=== PATIENT | female | born 1935 | race Caucasian/White ===

== ENCOUNTER → 2016-06-05 | Outpatient (REF) | payer MEDICARE, BC ==
[~2016-06-05] MED LIST: /FENT25PA; /ONDA4TA PO; /PRAV20TA PO; ALDA25TA2 PO; ALLO300T; AMLO5TAB2 PO; CIPR250T3 PO; DARV100T; ECOT325T5 PO; FOLI1TAB PO; FURO40TA2 PO; GABA300T; MAALSUS PO; NITR0.6S SL; PLAV75TA2 PO; POTA75TA PO; PREV30TA; THERGRAN PO; TRAM50TA2 PO; ULOR80TA2 PO; VALS80CA PO; VENL37.5 PO; VITAMIN D50000 UNT; XANA0.25 PO; ZANT150T PO; [UNRECOGNIZED DRUG - CODE] TOP; [UNRECOGNIZED DRUG - OTHER]
== END ==
LOC: M LAB REF 18:58
PROVIDERS: ATTEND Physician Assistant
DX: N39.0 Urinary tract infection, site not specified (principal)

== ENCOUNTER → 2016-07-04 | Outpatient (CLI) | payer MEDICARE, BC ==
--- NOTE | 2016-07-04 12:35 | REPMRS ---
Patient History The patient states she has not had a clinical breast exam in over a year. 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 Digital Mammo Screening Bilat: July 04, 2016 - Exam #: [id number] Bilateral CC and MLO view(s) were taken. Technologist: Elayne Mix, Technologist Prior study comparison: July 02, 2015, bilateral digital mammo screening bilat performed at [facility]. July 02, 2014, left breast digital mammo screening bilat performed at [facility]. June 20, 2013, left breast digital mammo screening bilat performed at [facility]. FINDINGS: There are scattered fibroglandular densities. There has been no change in the appearance of the left breast parenchyma in the interval since the prior examination. No mass, architectural distortion, or microcalcific cluster has developed. No suspicious finding. ASSESSMENT: BI-RADS/ACR category 2 mammogram. Benign finding(s). Recommendation Routine screening mammogram in 1 year. This mammogram was interpreted with the aid of an FDA-approved computer-aided dectection system. Electronically Signed By: John Paul Coppola MD 07/04/16 [id number]
== END ==
LOC: M RAD 10:40
PROVIDERS: ATTEND Family Medicine
DX: Z12.31 Encounter for screening mammogram for malignant neoplasm of breast (principal)

== ENCOUNTER → 2016-08-01 | Outpatient (REF) | payer MEDICARE, BC ==
[2016-08-01 13:16] LABS: ALBUMIN 3.8 GM/DL (3.2-5.2); ALBUMIN/GLOBULIN RATIO 1.23 (1.00-1.93); BILIRUBIN,TOTAL 0.4 MG/DL (0.2-1.0); CALCIUM LEVEL 8.6 MG/DL (8.8-10.2); CREATININE FOR GFR 1.58 MG/DL (0.55-1.02); GLOMERULAR FILTRATION RATE 33.3 (>32); POTASSIUM SERUM 3.7 MEQ/L (3.5-5.1); TOTAL PROTEIN 6.9 GM/DL (6.4-8.2)
[2016-08-01 13:57] LABS: BASO % 0.5 % (0.0-1.0); EOS # 0.2 K/mm3 (0.0-0.50); EOS % 2.3 % (0.0-3.0); LARGE UNSTAINED CELL # 0.1 K/mm3 (0.0-0.4); LYMPH # 1.2 K/mm3 (1.5-4.5); LYMPH % 16.5 % (24.0-44.0); MEAN CORPUSCULAR HEMOGLOBIN 32.4 pg (27.0-33.0); MEAN CORPUSCULAR VOLUME 98.2 fl (80.0-96.0); MONO # 0.4 K/mm3 (0.0-0.8); MONO % 6.2 % (0.0-5.0); NEUTROPHILS # 5.1 K/mm3 (1.8-7.7); NEUTROPHILS % 73.4 % (36.0-66.0); PLATELET COUNT, AUTOMATED 294 k/mm3 (150-450); RED CELL DISTRIBUTION WIDTH 13.1 % (11.5-14.5)
== END ==
LOC: M LAB REF 12:41
PROVIDERS: ATTEND Family Medicine
DX: R10.31 Right lower quadrant pain (principal)

== ENCOUNTER → 2016-10-06 | Outpatient (REF) | payer MEDICARE, BC | LOC: M LAB REF 12:51 | PROVIDERS: ATTEND Internal Medicine Nephrology | DX: N39.0 Urinary tract infection, site not specified (principal) ==

== ENCOUNTER → 2017-05-09 | Outpatient (REF) | payer MEDICARE, BC ==
[2017-05-09 13:53] LABS: ALBUMIN 3.8 GM/DL (3.2-5.2); ANION GAP 10 MEQ/L (8-16); BLOOD UREA NITROGEN 44 MG/DL (7-18); CALCIUM LEVEL 8.6 MG/DL (8.8-10.2); CARBON DIOXIDE LEVEL 25 MEQ/L (21-32); CHLORIDE LEVEL 106 MEQ/L (98-107); CREATININE FOR GFR 1.45 MG/DL (0.55-1.02); GLOMERULAR FILTRATION RATE 36.7 (>32); GLUCOSE, FASTING 105 MG/DL (83-110); MAGNESIUM LEVEL 2.2 MG/DL (1.8-2.4); POTASSIUM SERUM 4.1 MEQ/L (3.5-5.1); SODIUM LEVEL 141 MEQ/L (136-145)
== END ==
LOC: M LAB REF 13:15
DX: I50.32 Chronic diastolic (congestive) heart failure (principal)
CPT/HCPCS: 83735

== ENCOUNTER → 2017-06-19 | Outpatient (REF) | payer MEDICARE, BC ==
[2017-06-19 17:30] LABS: ALBUMIN 4.3 GM/DL (3.2-5.2); ANION GAP 10 MEQ/L (8-16); BLOOD UREA NITROGEN 29 MG/DL (7-18); CALCIUM LEVEL 8.9 MG/DL (8.8-10.2); CARBON DIOXIDE LEVEL 24 MEQ/L (21-32); CHLORIDE LEVEL 103 MEQ/L (98-107); CREATININE FOR GFR 1.52 MG/DL (0.55-1.30); GLOMERULAR FILTRATION RATE 34.8 (>32); GLUCOSE, FASTING 92 MG/DL (70-100); MAGNESIUM LEVEL 2.1 MG/DL (1.8-2.4); PHOSPHORUS LEVEL 3.5 MG/DL (2.5-4.9); POTASSIUM SERUM 4.1 MEQ/L (3.5-5.1); SODIUM LEVEL 137 MEQ/L (136-145)
== END ==
LOC: M LAB REF 16:26
DX: I50.32 Chronic diastolic (congestive) heart failure (principal)
CPT/HCPCS: 83735

== ENCOUNTER → 2017-07-05 | Outpatient (CLI) | payer MEDICARE, BC | LOC: M RAD 09:50 | DX: Z12.31 Encounter for screening mammogram for malignant neoplasm of breast (principal); Z85.3 Personal history of malignant neoplasm of breast | CPT/HCPCS: 77067 ==

== ENCOUNTER → 2017-10-06 | Outpatient (REF) | payer MEDICARE, BC ==
[2017-10-06 18:58] LABS: ANION GAP 9 MEQ/L (8-16); BLOOD UREA NITROGEN 31 MG/DL (7-18); C REACTIVE PROTEIN QUANTITATIV < 0.30 MG/DL (0.00-0.30); CALCIUM LEVEL 9.1 MG/DL (8.8-10.2); CARBON DIOXIDE LEVEL 26 MEQ/L (21-32); CHLORIDE LEVEL 106 MEQ/L (98-107); CREATININE FOR GFR 1.48 MG/DL (0.55-1.30); GLOMERULAR FILTRATION RATE 35.8 (>32); GLUCOSE, FASTING 90 MG/DL (70-100); POTASSIUM SERUM 4.3 MEQ/L (3.5-5.1); SODIUM LEVEL 141 MEQ/L (136-145)
[2017-10-06 19:34] LABS: HEMATOCRIT 43.6 % (36.0-47.0); HEMOGLOBIN 14.1 g/dl (12.0-15.5); MEAN CORPUSCULAR HEMOGLOBIN 32.1 pg (27.0-33.0); MEAN CORPUSCULAR HGB CONC 32.3 g/dl (32.0-36.5); MEAN CORPUSCULAR VOLUME 99.3 fl (80.0-96.0); PLATELET COUNT, AUTOMATED 323 10^3/uL (150-450); RED BLOOD COUNT 4.39 10^6/uL (4.00-5.40); WHITE BLOOD COUNT 8.6 10^3/uL (4.0-10.0)
[2017-10-06 22:27] LABS: ERYTHROCYTE SEDIMENTATION RATE 45 mm/hr (0-30)
== END ==
LOC: M LAB REF 14:00
DX: L97.329 Non-pressure chronic ulcer of left ankle with unspecified severity (principal)
CPT/HCPCS: 80048

== ENCOUNTER 2017-10-16 06:04 | Day surgery (SDC) | payer MEDICARE, BC ==
[2017-10-16] MEDS ORDERED: LR 1,000 ML IV ×6 (06:15→10:30)
[2017-10-16] MEDS ORDERED: PROPOFOL 200 MG/20 ML VIAL As Ordered ×4 (08:16→09:37)
[2017-10-16] MEDS ORDERED: CHLOROPROCAINE PRES. FREE 3% INJ 20 ML VIAL (J2400) As Ordered ×2 (08:16)
[2017-10-16] MEDS ORDERED: fentaNYL 250 MCG/5 ML INJECTION (J3010) As Ordered ×2 (08:16)
[2017-10-16] MEDS ORDERED: ONDANSETRON 4MG/2ML VIAL (J2405) As Ordered ×2 (08:16)
[2017-10-16] MEDS ORDERED: LIDOCAINE 2% INJ 100 MG/5 ML SDV (FOR ANES.) As Ordered ×2 (08:16)
[2017-10-16] MEDS ORDERED: MIDAZOLAM INJ 2 MG/2 ML VIAL (J2250) As Ordered ×2 (08:16)
[2017-10-16] MEDS ORDERED: ePHEDrine SULFATE 25 MG/5 ML(5MG/ML) SYRINGE As Ordered ×4 (08:19→09:09)
[2017-10-16] MEDS: CLINDAMYCIN INJ 900MG/6ML VIAL As Ordered ×2 (08:44)
[2017-10-16] MEDS: BUPIVACAINE HCL 0.5% 30 ML VIAL As Ordered ×2 (09:55)
[2017-10-16] MEDS ORDERED: NORCO, ANEXSIA 5/325MG TABLET (HYDROcodone/ACETAMINOPHEN) PO ×2 (10:30)
[2017-10-16] MEDS ORDERED: ONDANSETRON 4MG/2ML VIAL (J2405) IV ×2 (10:30)
[2017-10-16] MEDS ORDERED: fentaNYL 100 MCG/2 ML INJECTION (J3010) IV ×2 (10:30)
[2017-10-16] MEDS ORDERED: ACETAMINOPHEN 500 MG TAB As Ordered ×2 (10:32)
[2017-10-16] MEDS: ACETAMINOPHEN 500 MG TAB PO ×2 (10:50)
[2017-10-16] MEDS ORDERED: traMADol 50 MG TAB PO ×2 (13:00)
== END 2017-10-16 12:07 | disposition home or self-care (01) ==
LOC: M SDC 06:04
DX: T84.84XA Pain due to internal orthopedic prosthetic devices, implants and grafts, initial encounter (principal); I50.32 Chronic diastolic (congestive) heart failure; R94.31 Abnormal electrocardiogram [ECG] [EKG]; I25.10 Atherosclerotic heart disease of native coronary artery without angina pectoris; I11.9 Hypertensive heart disease without heart failure; Z79.899 Other long term (current) drug therapy; Z68.37 Body mass index [BMI] 37.0-37.9, adult; K59.00 Constipation, unspecified; Z79.82 Long term (current) use of aspirin; Y79.8 Miscellaneous orthopedic devices associated with adverse incidents, not elsewhere classified
CPT/HCPCS: 20680

== ENCOUNTER → 2017-12-19 | Outpatient (REF) | payer MEDICARE, BC ==
[2017-12-19 19:03] LABS: C REACTIVE PROTEIN QUANTITATIV 0.46 MG/DL (0.00-0.30)
[2017-12-19 19:19] LABS: BASO # 0.1 10^3/uL (0.0-0.2); BASO % 0.8 % (0.0-1.0); EOS # 0.2 10^3/uL (0.0-0.50); EOS % 2.5 % (0.0-3.0); HEMATOCRIT 42.2 % (36.0-47.0); HEMOGLOBIN 13.8 g/dl (12.0-15.5); IMMATURE GRANULOCYTE % 0.4 % (0-3.0); LYMPH # 2.2 10^3/uL (1.5-4.5); LYMPH % 26.1 % (24.0-44.0); MEAN CORPUSCULAR HEMOGLOBIN 32.6 pg (27.0-33.0); MEAN CORPUSCULAR HGB CONC 32.7 g/dl (32.0-36.5); MEAN CORPUSCULAR VOLUME 99.8 fl (80.0-96.0); MONO # 0.6 10^3/uL (0.0-0.8); MONO % 7.1 % (0.0-5.0); NEUTROPHILS # 5.3 10^3/uL (1.8-7.7); NEUTROPHILS % 63.1 % (36.0-66.0); PLATELET COUNT, AUTOMATED 331 10^3/uL (150-450); RED BLOOD COUNT 4.23 10^6/uL (4.00-5.40); RED CELL DISTRIBUTION WIDTH 12.8 % (11.5-14.5); WHITE BLOOD COUNT 8.4 10^3/uL (4.0-10.0)
[2017-12-19 21:12] LABS: ERYTHROCYTE SEDIMENTATION RATE 33 mm/hr (0-30)
== END ==
LOC: M LAB REF 17:03
DX: L97.329 Non-pressure chronic ulcer of left ankle with unspecified severity (principal)
CPT/HCPCS: 86140

== ENCOUNTER → 2017-12-24 | Outpatient (REF) | payer MEDICARE, BC ==
[2017-12-24 18:38] LABS: BASO # 0.1 10^3/uL (0.0-0.2); BASO % 0.5 % (0.0-1.0); EOS # 0.3 10^3/uL (0.0-0.50); EOS % 1.7 % (0.0-3.0); HEMATOCRIT 42.5 % (36.0-47.0); HEMOGLOBIN 14.3 g/dl (12.0-15.5); IMMATURE GRANULOCYTE % 0.5 % (0-3.0); LYMPH # 1.4 10^3/uL (1.5-4.5); LYMPH % 8.9 % (24.0-44.0); MEAN CORPUSCULAR HEMOGLOBIN 33.1 pg (27.0-33.0); MEAN CORPUSCULAR HGB CONC 33.6 g/dl (32.0-36.5); MEAN CORPUSCULAR VOLUME 98.4 fl (80.0-96.0); MONO % 6.7 % (0.0-5.0); NEUTROPHILS # 12.4 10^3/uL (1.8-7.7); NEUTROPHILS % 81.7 % (36.0-66.0); PLATELET COUNT, AUTOMATED 337 10^3/uL (150-450); RED BLOOD COUNT 4.32 10^6/uL (4.00-5.40); RED CELL DISTRIBUTION WIDTH 12.7 % (11.5-14.5); WHITE BLOOD COUNT 15.2 10^3/uL (4.0-10.0)
[2017-12-24 18:48] LABS: URIC ACID 4.2 MG/DL (2.6-6.0)
== END ==
LOC: M WUC 10:52
DX: M25.572 Pain in left ankle and joints of left foot (principal)
CPT/HCPCS: 84550

== ENCOUNTER 2017-12-25 14:46 | Inpatient (IN) | payer MEDICARE, BC ==
[2017-12-25] MEDS ORDERED: ALPRAZolam 0.5 MG TAB PO (15:15)
[2017-12-25] MEDS ORDERED: traMADol 50 MG TAB PO (15:30)
[2017-12-25] MEDS ORDERED: CEFTAROLINE FOSAMIL 400 MG in D5W MINI-BAG PLUS 50 ML IV (15:45)
[2017-12-25] MEDS: ACETAMINOPHEN 500 MG TAB PO ×2 (16:46→20:58)
[2017-12-25 17:01] LABS: ALBUMIN 3.5 GM/DL (3.2-5.2); ALBUMIN/GLOBULIN RATIO 1.09 (1.00-1.93); ALKALINE PHOSPHATASE 69 U/L (45-117); ALT/SGPT 15 U/L (12-78); ANION GAP 8 MEQ/L (8-16); AST/SGOT 9 U/L (7-37); BILIRUBIN,TOTAL 0.6 MG/DL (0.2-1.0); BLOOD UREA NITROGEN 27 MG/DL (7-18); CALCIUM LEVEL 8.9 MG/DL (8.8-10.2); CARBON DIOXIDE LEVEL 30 MEQ/L (21-32); CHLORIDE LEVEL 101 MEQ/L (98-107); CREATININE FOR GFR 1.49 MG/DL (0.55-1.30); GLOMERULAR FILTRATION RATE 35.5 (>32); GLUCOSE, FASTING 109 MG/DL (70-100); POTASSIUM SERUM 3.4 MEQ/L (3.5-5.1); SODIUM LEVEL 139 MEQ/L (136-145); TOTAL PROTEIN 6.7 GM/DL (6.4-8.2)
[2017-12-25] MEDS ORDERED: VANCOMYCIN HCL 1,000 MG, VIAL MATE ADAPTER 1 EACH in D5W 250 ML IV ×2 (18:00)
[2017-12-25] MEDS: VANCOMYCIN HCL 1,000 MG, VIAL MATE ADAPTER 1 EACH in D5W 250 ML IV ×2 (19:16→20:58)
[2017-12-25] MEDS: PRAVASTATIN 20 MG TAB PO (20:58)
[2017-12-26] MEDS: LR 1,000 ML IV ×2 (00:23→12:30)
[2017-12-26] MEDS: ACETAMINOPHEN 500 MG TAB PO ×3 (06:43→21:25)
[2017-12-26 07:13] LABS: ANION GAP 7 MEQ/L (8-16); BLOOD UREA NITROGEN 33 MG/DL (7-18); CALCIUM LEVEL 8.5 MG/DL (8.8-10.2); CARBON DIOXIDE LEVEL 28 MEQ/L (21-32); CHLORIDE LEVEL 106 MEQ/L (98-107); CREATININE FOR GFR 1.49 MG/DL (0.55-1.30); GLOMERULAR FILTRATION RATE 35.5 (>32); GLUCOSE, FASTING 124 MG/DL (70-100); POTASSIUM SERUM 3.6 MEQ/L (3.5-5.1); SODIUM LEVEL 141 MEQ/L (136-145)
[2017-12-26 07:16] LABS: BASO % 0.2 % (0.0-1.0); EOS # 0.2 10^3/uL (0.0-0.50); EOS % 1.4 % (0.0-3.0); HEMOGLOBIN 14.1 g/dl (12.0-15.5); IMMATURE GRANULOCYTE % 0.4 % (0-3.0); LYMPH # 1.2 10^3/uL (1.5-4.5); LYMPH % 11.4 % (24.0-44.0); MEAN CORPUSCULAR HEMOGLOBIN 33.2 pg (27.0-33.0); MEAN CORPUSCULAR HGB CONC 33.6 g/dl (32.0-36.5); MEAN CORPUSCULAR VOLUME 98.8 fl (80.0-96.0); MONO # 0.8 10^3/uL (0.0-0.8); MONO % 7.3 % (0.0-5.0); NEUTROPHILS # 8.2 10^3/uL (1.8-7.7); NEUTROPHILS % 79.3 % (36.0-66.0); PLATELET COUNT, AUTOMATED 212 10^3/uL (150-450); RED BLOOD COUNT 4.25 10^6/uL (4.00-5.40); RED CELL DISTRIBUTION WIDTH 12.8 % (11.5-14.5); WHITE BLOOD COUNT 10.4 10^3/uL (4.0-10.0)
[2017-12-26] MEDS ORDERED: amLODIPine 5 MG TAB PO (09:00)
[2017-12-26] MEDS: FEBUXOSTAT 40 MG TABLET (ULORIC) PO (10:30)
[2017-12-26] MEDS: VANCOMYCIN HCL 1,000 MG, VIAL MATE ADAPTER 1 EACH in D5W 250 ML IV (10:30)
[2017-12-26] MEDS: FOLIC ACID 1 MG TAB PO (10:30)
[2017-12-26] MEDS: SPIRONOLACTONE 25 MG TAB PO (10:31)
[2017-12-26] MEDS: PANTOPRAZOLE 40MG TAB (PROTONIX) PO (10:31)
[2017-12-26] MEDS: VENLAFAXINE **XR** 37.5 MG CAPSULE PO (10:31)
[2017-12-26] MEDS: CLOPIDOGREL 75 MG TAB PO (10:31)
[2017-12-26] MEDS: FUROSEMIDE 40 MG TAB PO (10:31)
[2017-12-26] MEDS: amLODIPine 10 MG TAB PO (10:32)
[2017-12-26] MEDS ORDERED: ONDANSETRON 4MG/2ML VIAL (J2405) IV (16:30)
[2017-12-26] MEDS ORDERED: BISACODYL 10 MG SUPP PR (16:30)
[2017-12-26] MEDS: ASPIRIN 81 MG ENTERIC TAB PO (21:24)
[2017-12-26] MEDS: ALPRAZolam 0.5 MG TAB PO (21:24)
[2017-12-26] MEDS: PRAVASTATIN 20 MG TAB PO (21:24)
[2017-12-26] MEDS: SENOKOT S TAB PO (21:24)
[2017-12-27] MEDS: LR 1,000 ML IV (01:00)
[2017-12-27] MEDS: ACETAMINOPHEN 500 MG TAB PO ×3 (06:32→21:52)
[2017-12-27 06:50] LABS: BASO % 0.1 % (0.0-1.0); EOS # 0.4 10^3/uL (0.0-0.50); EOS % 5.3 % (0.0-3.0); HEMATOCRIT 36.2 % (36.0-47.0); IMMATURE GRANULOCYTE % 0.4 % (0-3.0); MEAN CORPUSCULAR HEMOGLOBIN 32.7 pg (27.0-33.0); MEAN CORPUSCULAR HGB CONC 32.9 g/dl (32.0-36.5); MEAN CORPUSCULAR VOLUME 99.5 fl (80.0-96.0); MONO # 0.6 10^3/uL (0.0-0.8); MONO % 7.6 % (0.0-5.0); NEUTROPHILS # 5.7 10^3/uL (1.8-7.7); NEUTROPHILS % 73.6 % (36.0-66.0); PLATELET COUNT, AUTOMATED 234 10^3/uL (150-450); RED BLOOD COUNT 3.64 10^6/uL (4.00-5.40); RED CELL DISTRIBUTION WIDTH 12.7 % (11.5-14.5); WHITE BLOOD COUNT 7.7 10^3/uL (4.0-10.0)
[2017-12-27 06:53] LABS: HEMOGLOBIN 11.9 g/dl (12.0-15.5)
[2017-12-27 07:11] LABS: ANION GAP 8 MEQ/L (8-16); BLOOD UREA NITROGEN 32 MG/DL (7-18); CALCIUM LEVEL 8.5 MG/DL (8.8-10.2); CARBON DIOXIDE LEVEL 27 MEQ/L (21-32); CHLORIDE LEVEL 108 MEQ/L (98-107); CREATININE FOR GFR 1.39 MG/DL (0.55-1.30); GLOMERULAR FILTRATION RATE 38.5 (>32); GLUCOSE, FASTING 117 MG/DL (70-100); POTASSIUM SERUM 3.4 MEQ/L (3.5-5.1); SODIUM LEVEL 143 MEQ/L (136-145)
[2017-12-27 07:25] LABS: ERYTHROCYTE SEDIMENTATION RATE 62 mm/hr (0-30)
[2017-12-27] MEDS: VENLAFAXINE **XR** 37.5 MG CAPSULE PO (08:57)
[2017-12-27] MEDS: SPIRONOLACTONE 25 MG TAB PO (08:57)
[2017-12-27] MEDS: amLODIPine 10 MG TAB PO (08:58)
[2017-12-27] MEDS: FUROSEMIDE 40 MG TAB PO (08:58)
[2017-12-27] MEDS: MIRALAX *UNIT DOSE* 17GM PACKET PO (08:58)
[2017-12-27] MEDS: FEBUXOSTAT 40 MG TABLET (ULORIC) PO (09:00)
[2017-12-27] MEDS: SENOKOT S TAB PO ×2 (09:00→21:53)
[2017-12-27] MEDS: CLOPIDOGREL 75 MG TAB PO (09:00)
[2017-12-27] MEDS: PANTOPRAZOLE 40MG TAB (PROTONIX) PO (09:00)
[2017-12-27] MEDS: FOLIC ACID 1 MG TAB PO (09:13)
[2017-12-27] MEDS: ALPRAZolam 0.5 MG TAB PO (09:13)
[2017-12-27] MEDS: VANCOMYCIN HCL 1,000 MG, VIAL MATE ADAPTER 1 EACH in D5W 250 ML IV (09:16)
[2017-12-27] MEDS: POTASSIUM CHLORIDE 10 MEQ SR TABLET PO (13:39)
[2017-12-27] MEDS: PRAVASTATIN 20 MG TAB PO (21:52)
[2017-12-27] MEDS: ASPIRIN 81 MG ENTERIC TAB PO (21:52)
[2017-12-28] MEDS: ACETAMINOPHEN 500 MG TAB PO (05:17)
[2017-12-28 07:28] LABS: BASO % 0.3 % (0.0-1.0); EOS # 0.6 10^3/uL (0.0-0.50); EOS % 8.2 % (0.0-3.0); HEMOGLOBIN 11.8 g/dl (12.0-15.5); IMMATURE GRANULOCYTE % 0.6 % (0-3.0); LYMPH # 1.2 10^3/uL (1.5-4.5); LYMPH % 17.6 % (24.0-44.0); MEAN CORPUSCULAR HEMOGLOBIN 32.6 pg (27.0-33.0); MEAN CORPUSCULAR HGB CONC 32.8 g/dl (32.0-36.5); MEAN CORPUSCULAR VOLUME 99.4 fl (80.0-96.0); MONO # 0.6 10^3/uL (0.0-0.8); MONO % 9.2 % (0.0-5.0); NEUTROPHILS # 4.4 10^3/uL (1.8-7.7); NEUTROPHILS % 64.1 % (36.0-66.0); PLATELET COUNT, AUTOMATED 260 10^3/uL (150-450); RED BLOOD COUNT 3.62 10^6/uL (4.00-5.40); RED CELL DISTRIBUTION WIDTH 12.7 % (11.5-14.5); WHITE BLOOD COUNT 6.9 10^3/uL (4.0-10.0)
[2017-12-28 07:45] LABS: ANION GAP 8 MEQ/L (8-16); BLOOD UREA NITROGEN 29 MG/DL (7-18); CALCIUM LEVEL 8.6 MG/DL (8.8-10.2); CARBON DIOXIDE LEVEL 27 MEQ/L (21-32); CHLORIDE LEVEL 108 MEQ/L (98-107); CREATININE FOR GFR 1.26 MG/DL (0.55-1.30); GLOMERULAR FILTRATION RATE 43.1 (>32); GLUCOSE, FASTING 106 MG/DL (70-100); POTASSIUM SERUM 3.9 MEQ/L (3.5-5.1); SODIUM LEVEL 143 MEQ/L (136-145); VANCOMYCIN LEVEL TROUGH 16.3 UG/ML (10.0-20.0)
[2017-12-28] MEDS: VANCOMYCIN HCL 1,000 MG, VIAL MATE ADAPTER 1 EACH in D5W 250 ML IV (08:18)
[2017-12-28] MEDS: MIRALAX *UNIT DOSE* 17GM PACKET PO (08:18)
[2017-12-28] MEDS: PANTOPRAZOLE 40MG TAB (PROTONIX) PO (08:26)
[2017-12-28] MEDS: SENOKOT S TAB PO (08:26)
[2017-12-28] MEDS: CLOPIDOGREL 75 MG TAB PO (08:27)
[2017-12-28] MEDS: POTASSIUM CHLORIDE 10 MEQ SR TABLET PO (08:27)
[2017-12-28] MEDS: amLODIPine 10 MG TAB PO (08:28)
[2017-12-28] MEDS: FEBUXOSTAT 40 MG TABLET (ULORIC) PO (08:28)
[2017-12-28] MEDS: VENLAFAXINE **XR** 37.5 MG CAPSULE PO (08:29)
[2017-12-28] MEDS: FOLIC ACID 1 MG TAB PO (08:29)
[2017-12-28] MEDS: FUROSEMIDE 40 MG TAB PO (08:29)
[2017-12-28] MEDS: SPIRONOLACTONE 25 MG TAB PO (08:30)
[2017-12-28 08:58] LABS: ERYTHROCYTE SEDIMENTATION RATE 56 mm/hr (0-30)
== END 2017-12-28 12:20 | disposition home or self-care (01) | DRG 560 ==
LOC: M MS5PR 14:46
DX: T84.7XXA Infection and inflammatory reaction due to other internal orthopedic prosthetic devices, implants and grafts, initial encounter (principal); L03.115 Cellulitis of right lower limb; I12.9 Hypertensive chronic kidney disease with stage 1 through stage 4 chronic kidney disease, or unspecified chronic kidney disease; N18.3 Chronic kidney disease, stage 3 (moderate); K21.9 Gastro-esophageal reflux disease without esophagitis; G47.30 Sleep apnea, unspecified; I25.10 Atherosclerotic heart disease of native coronary artery without angina pectoris; H26.9 Unspecified cataract; M10.9 Gout, unspecified; I65.23 Occlusion and stenosis of bilateral carotid arteries; B95.62 Methicillin resistant Staphylococcus aureus infection as the cause of diseases classified elsewhere; Z88.0 Allergy status to penicillin; Z88.2 Allergy status to sulfonamides; Z88.5 Allergy status to narcotic agent; Z88.8 Allergy status to other drugs, medicaments and biological substances; Z79.02 Long term (current) use of antithrombotics/antiplatelets; Z79.82 Long term (current) use of aspirin; Z79.899 Other long term (current) drug therapy; Z95.5 Presence of coronary angioplasty implant and graft; Y83.1 Surgical operation with implant of artificial internal device as the cause of abnormal reaction of the patient, or of later complication, without mention of misadventure at the time of the procedure; Z85.3 Personal history of malignant neoplasm of breast

== ENCOUNTER → 2017-12-25 | Outpatient (CLI) | payer MEDICARE, BC | LOC: M RAD 13:13 | DX: R60.0 Localized edema (principal); Z47.89 Encounter for other orthopedic aftercare; Z85.3 Personal history of malignant neoplasm of breast ==

== ENCOUNTER → 2018-01-09 | Outpatient (REF) | payer MEDICARE, BC ==
[2018-01-09 13:43] LABS: BASO # 0.1 10^3/uL (0.0-0.2); BASO % 1.5 % (0.0-1.0); EOS # 0.2 10^3/uL (0.0-0.50); EOS % 1.9 % (0.0-3.0); HEMATOCRIT 38.6 % (36.0-47.0); HEMOGLOBIN 12.7 g/dl (12.0-15.5); IMMATURE GRANULOCYTE % 0.2 % (0-3.0); LYMPH # 1.9 10^3/uL (1.5-4.5); MEAN CORPUSCULAR HGB CONC 32.9 g/dl (32.0-36.5); MEAN CORPUSCULAR VOLUME 100.3 fl (80.0-96.0); MONO # 0.6 10^3/uL (0.0-0.8); NEUTROPHILS % 68.4 % (36.0-66.0); PLATELET COUNT, AUTOMATED 266 10^3/uL (150-450); RED BLOOD COUNT 3.85 10^6/uL (4.00-5.40); RED CELL DISTRIBUTION WIDTH 12.6 % (11.5-14.5); WHITE BLOOD COUNT 8.8 10^3/uL (4.0-10.0)
[2018-01-09 14:50] LABS: ERYTHROCYTE SEDIMENTATION RATE 52 mm/hr (0-30)
[2018-01-09 14:56] LABS: ANION GAP 10 MEQ/L (8-16); BLOOD UREA NITROGEN 66 MG/DL (7-18); C REACTIVE PROTEIN QUANTITATIV 0.47 MG/DL (0.00-0.30); CARBON DIOXIDE LEVEL 28 MEQ/L (21-32); CHLORIDE LEVEL 100 MEQ/L (98-107); CREATININE FOR GFR 1.95 MG/DL (0.55-1.30); GLUCOSE, FASTING 96 MG/DL (70-100); POTASSIUM SERUM 4.3 MEQ/L (3.5-5.1); SODIUM LEVEL 138 MEQ/L (136-145)
== END ==
LOC: M SFHCPLAZ 10:29
DX: A49.02 Methicillin resistant Staphylococcus aureus infection, unspecified site (principal)
CPT/HCPCS: 80048

== ENCOUNTER → 2018-01-19 | Outpatient (REF) | payer MEDICARE, BC ==
[2018-01-19 18:42] LABS: ALBUMIN 3.9 GM/DL (3.2-5.2); ALBUMIN/GLOBULIN RATIO 1.18 (1.00-1.93); ALKALINE PHOSPHATASE 73 U/L (45-117); ALT/SGPT 21 U/L (12-78); ANION GAP 11 MEQ/L (8-16); AST/SGOT 14 U/L (7-37); BILIRUBIN,TOTAL 0.6 MG/DL (0.2-1.0); BLOOD UREA NITROGEN 43 MG/DL (7-18); C REACTIVE PROTEIN QUANTITATIV 0.31 MG/DL (0.00-0.30); CARBON DIOXIDE LEVEL 26 MEQ/L (21-32); CHLORIDE LEVEL 101 MEQ/L (98-107); GLOMERULAR FILTRATION RATE 26.8 (>32); GLUCOSE, FASTING 99 MG/DL (70-100); POTASSIUM SERUM 4.5 MEQ/L (3.5-5.1); SODIUM LEVEL 138 MEQ/L (136-145); TOTAL PROTEIN 7.2 GM/DL (6.4-8.2)
[2018-01-19 18:53] LABS: BASO # 0.1 10^3/uL (0.0-0.2); BASO % 1.9 % (0.0-1.0); EOS # 0.2 10^3/uL (0.0-0.50); EOS % 3.1 % (0.0-3.0); HEMATOCRIT 35.4 % (36.0-47.0); HEMOGLOBIN 11.6 g/dl (12.0-15.5); IMMATURE GRANULOCYTE % 0.3 % (0-3.0); LYMPH # 1.7 10^3/uL (1.5-4.5); LYMPH % 25.4 % (24.0-44.0); MEAN CORPUSCULAR HEMOGLOBIN 32.3 pg (27.0-33.0); MEAN CORPUSCULAR HGB CONC 32.8 g/dl (32.0-36.5); MEAN CORPUSCULAR VOLUME 98.6 fl (80.0-96.0); MONO # 0.5 10^3/uL (0.0-0.8); MONO % 6.6 % (0.0-5.0); NEUTROPHILS # 4.3 10^3/uL (1.8-7.7); NEUTROPHILS % 62.7 % (36.0-66.0); PLATELET COUNT, AUTOMATED 245 10^3/uL (150-450); RED BLOOD COUNT 3.59 10^6/uL (4.00-5.40); RED CELL DISTRIBUTION WIDTH 12.5 % (11.5-14.5); WHITE BLOOD COUNT 6.8 10^3/uL (4.0-10.0)
[2018-01-19 20:04] LABS: ERYTHROCYTE SEDIMENTATION RATE 48 mm/hr (0-30)
== END ==
LOC: M SFHCPLAZ 16:16
DX: G43.A0 Cyclical vomiting, in migraine, not intractable (principal); A49.02 Methicillin resistant Staphylococcus aureus infection, unspecified site; L03.116 Cellulitis of left lower limb
CPT/HCPCS: 80053

== ENCOUNTER → 2018-02-02 | Outpatient (REF) | payer MEDICARE, BC ==
[2018-02-02 18:35] LABS: BASO # 0.1 10^3/uL (0.0-0.2); BASO % 0.8 % (0.0-1.0); EOS # 0.3 10^3/uL (0.0-0.50); HEMATOCRIT 38.5 % (36.0-47.0); HEMOGLOBIN 12.2 g/dl (12.0-15.5); IMMATURE GRANULOCYTE % 0.4 % (0-3.0); LYMPH # 1.8 10^3/uL (1.5-4.5); LYMPH % 19.9 % (24.0-44.0); MEAN CORPUSCULAR HEMOGLOBIN 32.2 pg (27.0-33.0); MEAN CORPUSCULAR HGB CONC 31.7 g/dl (32.0-36.5); MEAN CORPUSCULAR VOLUME 101.6 fl (80.0-96.0); MONO # 0.7 10^3/uL (0.0-0.8); MONO % 7.1 % (0.0-5.0); NEUTROPHILS # 6.3 10^3/uL (1.8-7.7); NEUTROPHILS % 68.8 % (36.0-66.0); PLATELET COUNT, AUTOMATED 470 10^3/uL (150-450); RED BLOOD COUNT 3.79 10^6/uL (4.00-5.40); RED CELL DISTRIBUTION WIDTH 14.6 % (11.5-14.5); WHITE BLOOD COUNT 9.2 10^3/uL (4.0-10.0)
[2018-02-02 19:00] LABS: ANION GAP 13 MEQ/L (8-16); BLOOD UREA NITROGEN 33 MG/DL (7-18); CALCIUM LEVEL 9.3 MG/DL (8.8-10.2); CARBON DIOXIDE LEVEL 25 MEQ/L (21-32); CHLORIDE LEVEL 102 MEQ/L (98-107); CREATININE FOR GFR 1.55 MG/DL (0.55-1.30); GLOMERULAR FILTRATION RATE 33.9 (>32); GLUCOSE, FASTING 94 MG/DL (70-100); POTASSIUM SERUM 4.4 MEQ/L (3.5-5.1); SODIUM LEVEL 140 MEQ/L (136-145)
[2018-02-02 20:34] LABS: ERYTHROCYTE SEDIMENTATION RATE 45 mm/hr (0-30)
== END ==
LOC: M SFHCPLAZ 17:11
DX: A49.02 Methicillin resistant Staphylococcus aureus infection, unspecified site (principal); N18.3 Chronic kidney disease, stage 3 (moderate)
CPT/HCPCS: 80048

== ENCOUNTER → 2018-05-31 | Outpatient (CLI) | payer MEDICARE, BC ==
[~2018-05-31] MED LIST changes: +ASPI81TA85 PO; +CLIN150C14 PO; +FOLI400T PO; +LANS30CA PO; +LINE600T11 PO; +NITR0.4S14 SL; +PARI1CAP3 PO; +POTA10TA16 PO; +SENN18TA PO; +TRAM-533 PO; -VITAMIN D50000 UNT; +VITAMIN D50000 UNT PO
--- NOTE | 2018-05-31 12:04 | REP ---
CT Head without contrast HISTORY: Contusion COMPARISON: 08/04/2007 An area of decreased attenuation is present in the right basal ganglia. This represents an old lacunar infarction. Areas of decreased attenuation are present in the periventricular white matter. This represents small-vessel ischemic disease. There is no intraparenchymal hemorrhage, acute infarct, mass or midline shift. The ventricular system and cortical sulci are dilated consistent with minimal volume loss. There is no extra cerebral collection. There is no fracture. The visualized sinuses are clear. IMPRESSION: 1. Old right basal ganglia lacunar infarction. 2. Small vessel ischemic disease. 3. Minimal volume loss. Electronically Signed by Dung Higuera MD 05/31/2018 11:57 A
== END ==
LOC: M RAD 11:26
PROVIDERS: ATTEND Physician Assistant
DX: I73.9 Peripheral vascular disease, unspecified (principal); I25.2 Old myocardial infarction; S00.83XA Contusion of other part of head, initial encounter; X58.XXXA Exposure to other specified factors, initial encounter; Y92.89 Other specified places as the place of occurrence of the external cause

== ENCOUNTER → 2018-08-16 | Outpatient (CLI) | payer MEDICARE, BC ==
[~2018-08-16] MED LIST changes: -/FENT25PA; -/ONDA4TA PO; -/PRAV20TA PO; +FENT1DIS14; +ONDA-1 PO; +PRAV1TAB39 PO
[2018-08-16 09:37] LABS: BASO # 0.1 10^3/uL (0.0-0.2); BASO % 0.8 % (0.0-1.0); EOS # 0.1 10^3/uL (0.0-0.50); EOS % 1.7 % (0.0-3.0); HEMATOCRIT 41.7 % (36.0-47.0); HEMOGLOBIN 13.7 g/dl (12.0-15.5); LYMPH # 1.5 10^3/uL (1.5-4.5); LYMPH % 19.6 % (24.0-44.0); MEAN CORPUSCULAR HEMOGLOBIN 32.6 pg (27.0-33.0); MEAN CORPUSCULAR HGB CONC 32.9 g/dl (32.0-36.5); MEAN CORPUSCULAR VOLUME 99.3 fl (80.0-96.0); MONO # 0.5 10^3/uL (0.0-0.8); MONO % 7.1 % (0.0-5.0); NEUTROPHILS # 5.4 10^3/uL (1.8-7.7); NEUTROPHILS % 70.4 % (36.0-66.0); PLATELET COUNT, AUTOMATED 277 10^3/uL (150-450); WHITE BLOOD COUNT 7.6 10^3/uL (4.0-10.0)
[2018-08-16 10:18] LABS: ALBUMIN 3.9 GM/DL (3.2-5.2); ALT/SGPT 14 U/L (12-78); BILIRUBIN,TOTAL 0.5 MG/DL (0.2-1.0); BLOOD UREA NITROGEN 27 MG/DL (7-18); CALCIUM LEVEL 9.5 MG/DL (8.8-10.2); CARBON DIOXIDE LEVEL 27 MEQ/L (21-32); CHLORIDE LEVEL 105 MEQ/L (98-107); CK-MB VALUE MASS < 1.0 NG/ML (<3.6); CPK CREATINE PHOSPHOKINASE 34 U/L (26-192); CREATININE FOR GFR 1.68 MG/DL (0.55-1.30); GLOMERULAR FILTRATION RATE 30.9 (>32); GLUCOSE, FASTING 112 MG/DL (70-100); MB/CK RELATIVE INDEX 2.94 (< OR =4); POTASSIUM SERUM 4.1 MEQ/L (3.5-5.1); SODIUM LEVEL 139 MEQ/L (136-145); TROPONIN I < 0.02 NG/ML (< 0.10)
== END ==
LOC: M WUC 08:45
PROVIDERS: ATTEND Physician Assistant
DX: R07.9 Chest pain, unspecified (principal); R11.0 Nausea

== ENCOUNTER → 2018-08-17 | Outpatient (CLI) | payer MEDICARE, BC ==
--- NOTE | 2018-08-17 14:10 | REP ---
Bilateral lower extremity deep vein duplex ultrasound: The deep veins demonstrate normal compression, normal Doppler color flow and normal Doppler waveforms with respiration and augmentation from the popliteal veins to the common femoral veins in the right and the left lower extremities. Impression: There is no deep vein thrombus in the right on the left lower extremities . Electronically Signed by Noe Gallo MD 08/17/2018 02:02 P
== END ==
LOC: M RAD 13:16
PROVIDERS: ATTEND Physician Assistant
DX: R07.9 Chest pain, unspecified (principal)

== ENCOUNTER → 2018-08-29 | Outpatient (REF) | payer MEDICARE, BC ==
[2018-08-29 18:10] LABS: ALBUMIN 4.1 GM/DL (3.2-5.2); BILIRUBIN,TOTAL 0.4 MG/DL (0.2-1.0); CALCIUM LEVEL 8.9 MG/DL (8.8-10.2); CREATININE FOR GFR 1.85 MG/DL (0.55-1.30); FREE T3 2.4 PG/ML (2.2-4.0); GLOMERULAR FILTRATION RATE 27.6 (>32); POTASSIUM SERUM 5.2 MEQ/L (3.5-5.1); THYROID STIMULATING HORMONE 5.04 uIU/ML (0.358-3.740); TOTAL PROTEIN 7.3 GM/DL (6.4-8.2)
== END ==
LOC: M LAB REF 17:14
PROVIDERS: ATTEND Family Medicine
DX: E07.9 Disorder of thyroid, unspecified (principal); R10.30 Lower abdominal pain, unspecified

== ENCOUNTER → 2019-03-19 | Outpatient (REF) | payer MEDICARE, BC ==
[~2019-03-19] MED LIST changes: +LINE1TAB6 PO; -LINE600T11 PO
== END ==
LOC: M LAB REF 13:35
PROVIDERS: ATTEND Internal Medicine Nephrology
DX: N39.0 Urinary tract infection, site not specified (principal)

== ENCOUNTER → 2019-05-30 | Outpatient (REF) | payer MEDICARE, BC ==
[2019-05-30 17:14] LABS: FREE T4 0.98 NG/DL (0.76-1.46); THYROID STIMULATING HORMONE 2.6 uIU/ML (0.358-3.740)
== END ==
LOC: M LABWUC 16:03
PROVIDERS: ATTEND Family Medicine
DX: E07.9 Disorder of thyroid, unspecified (principal)

== ENCOUNTER → 2020-02-06 | Outpatient (CLI) | payer MEDICARE, BC ==
[~2020-02-06] MED LIST changes: -ASPI81TA85 PO; +ASPI81TA86 PO
--- NOTE | 2020-02-12 11:21 | REP ---
LEFT KNEE SERIES HISTORY: Worsening knee pain and swelling. TECHNIQUE: Five views of the left knee are performed. FINDINGS: There is no acute fracture or dislocation. There is severe narrowing of the lateral joint space with a moderate degree of subchondral sclerosis and moderate spurring of the lateral femoral condyle and tibial plateau. There is diffuse irregularity of the articulating surfaces of the lateral femoral condyle and tibial plateau. There is mild narrowing of the medial joint space with mild subchondral sclerosis and spurring. Patellofemoral joint is [id number] narrowed diffusely with mild subchondral sclerosis. There is moderate spurring of the superior and inferior poles of the patella, as well as of the anterior aspect of the femoral condyles. There is a moderate joint effusion. Vascular calcifications are seen posteriorly. 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 No acute fracture. Moderate joint effusion. DD: NETO
== END ==
LOC: M WUC 12:15
PROVIDERS: ATTEND Family Medicine
DX: M17.12 Unilateral primary osteoarthritis, left knee (principal); M25.462 Effusion, left knee

== ENCOUNTER → 2020-03-15 | Outpatient (REF) | payer MEDICARE, BC ==
[2020-03-15 17:31] LABS: BASO # 0.1 10^3/uL (0.0-0.2); EOS # 0.2 10^3/uL (0.0-0.5); EOS % 2.7 % (0.0-3.0); HEMATOCRIT 43.5 % (36.0-47.0); HEMOGLOBIN 13.4 g/dl (12.0-15.5); LYMPH # 1.4 10^3/uL (1.5-5.0); LYMPH % 22.2 % (24.0-44.0); MEAN CORPUSCULAR HEMOGLOBIN 31.5 pg (27.0-33.0); MEAN CORPUSCULAR HGB CONC 30.8 g/dl (32.0-36.5); MEAN CORPUSCULAR VOLUME 102.4 fl (80.0-96.0); MONO # 0.5 10^3/uL (0.0-0.8); MONO % 7.5 % (0.0-5.0); NEUTROPHILS # 4.2 10^3/uL (1.5-8.5); NEUTROPHILS % 66.3 % (36.0-66.0); PLATELET COUNT, AUTOMATED 280 10^3/uL (150-450); RED BLOOD COUNT 4.25 10^6/uL (4.00-5.40); WHITE BLOOD COUNT 6.3 10^3/uL (4.0-10.0)
[2020-03-15 17:53] LABS: ERYTHROCYTE SEDIMENTATION RATE 30 mm/hr (0-30)
== END ==
LOC: M LAB REF 17:20
PROVIDERS: ATTEND Orthopaedic Surgery
DX: M25.572 Pain in left ankle and joints of left foot (principal)

== ENCOUNTER → 2020-06-12 | Outpatient (CLI) | payer MEDICARE, BC ==
[~2020-06-12] MED LIST changes: -CLIN150C14 PO; +CLIN150C15 PO
--- NOTE | 2020-06-12 16:56 | REP ---
INDICATION: PAIN COMPARISON: None. TECHNIQUE: Four views right ankle. FINDINGS: There is no evidence of acute fracture, dislocation, or intrinsic bone disease.Small inferior calcaneal spur is noted. Mild scattered vascular calcifications are seen in the soft tissues. There is mild dorsal navicular spurring as well as mild narrowing of the talonavicular joint. The ankle mortise is anatomic. IMPRESSION: No fracture or dislocation. Mild arthritic changes. <Electronically signed by Noe Rangel > 06/12/20 [id number]
== END ==
LOC: M WUC 14:23
PROVIDERS: ATTEND Family Medicine
DX: M79.661 Pain in right lower leg (principal); M19.071 Primary osteoarthritis, right ankle and foot

== ENCOUNTER → 2020-09-11 | Outpatient (CLI) | payer MEDICARE, BC ==
[~2020-09-11] MED LIST changes: -FOLI400T PO; +FOLI400T13 PO
--- NOTE | 2020-09-11 13:56 | REP ---
INDICATION: PAIN COMPARISON: None. TECHNIQUE: Five views right knee. FINDINGS: There is no evidence of acute fracture, dislocation, or intrinsic bone disease.There is moderate medial joint space narrowing with subchondral sclerosis and diffuse moderate spurring. There is mild narrowing of the lateral joint. There is moderate patellofemoral compartment narrowing with subchondral sclerosis. There is mild spurring of the lateral patellar facet. Mild vascular calcifications are seen posteriorly. IMPRESSION: No fracture or dislocation. Moderate degenerative changes. <Electronically signed by Noe Rangel > 09/11/20 [id number]
== END ==
LOC: M WUC 13:18
PROVIDERS: ATTEND Nurse Practitioner Family
DX: M25.561 Pain in right knee (principal); M17.11 Unilateral primary osteoarthritis, right knee

== ENCOUNTER → 2020-09-29 | Outpatient (REF) | payer MEDICARE, BC ==
[2020-09-29 14:33] LABS: APPEARANCE, URINE HAZY (CLEAR); BACTERIA, URINE AUTO 1+ (NEGATIVE); BILIRUBIN, URINE AUTO NEGATIVE (NEGATIVE); BLOOD, URINE BLOOD NEGATIVE (NEGATIVE); COLOR, URINE YELLOW (YELLOW); GLUCOSE, URINE (UA) AUTO NEGATIVE (NEGATIVE); KETONE, URINE AUTO NEGATIVE (NEGATIVE); LEUKOCYTE ESTERASE, URINE AUTO 1+ (NEGATIVE); NITRITE, URINE AUTO NEGATIVE (NEGATIVE); PROTEIN, URINE AUTO 1+ mg/dL (NEGATIVE); RBC, URINE AUTO 1 /HPF (0-3); SPECIFIC GRAVITY URINE AUTO 1.015 (1.002-1.035); SQUAMOUS EPITHELIAL CELL UR AU 2 /HPF (0-6); UROBILINOGEN, URINE AUTO 0.2 mg/dL (0.0-2.0); WBC, URINE AUTO 9 /HPF (0-3)
== END ==
LOC: M LAB REF 14:05
PROVIDERS: ATTEND Nurse Practitioner Family
DX: N18.4 Chronic kidney disease, stage 4 (severe) (principal)

== ENCOUNTER → 2021-03-09 | Outpatient (CLI) | payer MEDICARE, BC ==
[~2021-03-09] MED LIST changes: -CLIN150C15 PO; +CLIN150C17 PO
[2021-03-09 20:06] LABS: BASO # 0.1 10^3/uL (0.0-0.2); BASO % 0.7 % (0.0-1.0); EOS # 0.1 10^3/uL (0.0-0.5); HEMATOCRIT 46.3 % (36.0-47.0); HEMOGLOBIN 14.7 g/dl (12.0-15.5); LYMPH # 1.9 10^3/uL (1.5-5.0); LYMPH % 19.5 % (24.0-44.0); MEAN CORPUSCULAR HEMOGLOBIN 32.6 pg (27.0-33.0); MEAN CORPUSCULAR HGB CONC 31.7 g/dl (32.0-36.5); MEAN CORPUSCULAR VOLUME 102.7 fl (80.0-96.0); MONO # 0.8 10^3/uL (0.0-0.8); MONO % 7.7 % (2.0-8.0); NEUTROPHILS % 70.8 % (36.0-66.0); PLATELET COUNT, AUTOMATED 340 10^3/uL (150-450); RED BLOOD COUNT 4.51 10^6/uL (4.00-5.40); WHITE BLOOD COUNT 9.8 10^3/uL (4.0-10.0)
[2021-03-09 20:36] LABS: ALBUMIN 4.2 GM/DL (3.2-5.2); BILIRUBIN,TOTAL 0.5 MG/DL (0.2-1.0); CREATININE FOR GFR 1.79 MG/DL (0.55-1.30); GLOMERULAR FILTRATION RATE 28.5 (>32); POTASSIUM SERUM 3.8 MEQ/L (3.5-5.1); TOTAL PROTEIN 7.8 GM/DL (6.4-8.2)
== END ==
LOC: M WUC 15:16
PROVIDERS: ATTEND Family Medicine
DX: R10.11 Right upper quadrant pain (principal)

== ENCOUNTER → 2021-04-08 | Outpatient (CLI) | payer MEDICARE, BC ==
--- NOTE | 2021-04-08 10:30 | REP ---
INDICATION: PAIN IN LEFT ANKLE AND JOINTS OF LEFT FOOT. COMPARISON: 11/24/2015 TECHNIQUE: Four views FINDINGS: Since the last examination there has been removal of the distal fibular internal fixation plate and fixing screws. Additionally, only 1 cancellous screw remains affixing an old healed medial malleolar fracture. There is evidence of widening of the lateral mortise. This is stable from the prior exam. I see no definite acute fracture. There are some vague lucencies in the distal fibula, however, these are likely secondary to removal of the aforementioned orthopedic hardware. IMPRESSION: Findings as described above. There is no definite acute osseous abnormality. I suppose the findings involving the distal fibula could represent an age undetermined distal fibular diaphyseal fracture. This would need to be correlated clinically for point tenderness about the region. <Electronically signed by Triston Daily > 04/08/21 0624
== END ==
LOC: M SOG 09:02
PROVIDERS: ATTEND Orthopaedic Surgery Adult Reconstructive Orthopaedic Surgery
DX: M25.572 Pain in left ankle and joints of left foot (principal); Z87.81 Personal history of (healed) traumatic fracture

== ENCOUNTER → 2021-08-26 | Outpatient (CLI) | payer MEDICARE, BC ==
[~2021-08-26] MED LIST changes: +PARI1CAP21 PO; -PARI1CAP3 PO; +POTA-149 PO; -POTA10TA16 PO
== END ==
LOC: M WUC 11:55
PROVIDERS: ATTEND Internal Medicine Cardiovascular Disease
DX: R05.3 Chronic cough (principal)

== ENCOUNTER → 2021-09-16 | Outpatient (CLI) | payer MEDICARE, BC | LOC: M SOG 09:02 | PROVIDERS: ATTEND Orthopaedic Surgery Adult Reconstructive Orthopaedic Surgery | DX: M25.562 Pain in left knee (principal); M17.11 Unilateral primary osteoarthritis, right knee; M25.762 Osteophyte, left knee ==

== ENCOUNTER → 2022-05-17 | Outpatient (CLI) | payer MEDICARE, BC ==
[2022-05-17 18:03] LABS: BASO # 0.1 10^3/uL (0.0-0.2); EOS # 0.2 10^3/uL (0.0-0.5); EOS % 2.5 % (0.0-3.0); HEMATOCRIT 46.2 % (36.0-47.0); HEMOGLOBIN 14.6 g/dl (12.0-15.5); LYMPH % 21.6 % (24.0-44.0); MEAN CORPUSCULAR HEMOGLOBIN 32.6 pg (27.0-33.0); MEAN CORPUSCULAR HGB CONC 31.6 g/dl (32.0-36.5); MEAN CORPUSCULAR VOLUME 103.1 fl (80.0-96.0); MONO # 0.7 10^3/uL (0.0-0.8); MONO % 7.2 % (2.0-8.0); NEUTROPHILS # 6.4 10^3/uL (1.5-8.5); NEUTROPHILS % 67.3 % (36.0-66.0); PLATELET COUNT, AUTOMATED 319 10^3/uL (150-450); RED BLOOD COUNT 4.48 10^6/uL (4.00-5.40); WHITE BLOOD COUNT 9.5 10^3/uL (4.0-10.0)
[2022-05-17 19:48] LABS: BILIRUBIN,TOTAL 0.6 MG/DL (0.3-1.2); CALCIUM LEVEL 9.9 MG/DL (8.3-10.6); CREATININE FOR GFR 1.5 MG/DL (0.55-1.30); GLOMERULAR FILTRATION RATE 34.9 (>32); POTASSIUM SERUM 4.2 MMOL/L (3.5-5.1); TOTAL PROTEIN 7.1 G/DL (5.7-8.2)
== END ==
LOC: M WUC 13:07
PROVIDERS: ATTEND Internal Medicine Cardiovascular Disease
DX: I50.32 Chronic diastolic (congestive) heart failure (principal); I35.8 Other nonrheumatic aortic valve disorders; I25.10 Atherosclerotic heart disease of native coronary artery without angina pectoris; I11.0 Hypertensive heart disease with heart failure

== ENCOUNTER → 2022-07-07 | Outpatient (REF) | payer MEDICARE, BC | LOC: M LAB REF 18:52 | PROVIDERS: ATTEND Student in an Organized Health Care Education/Training Program | DX: R30.0 Dysuria (principal) ==

== ENCOUNTER → 2022-07-08 | Outpatient (REF) | payer MEDICARE, BC ==
[2022-07-08 12:22] LABS: BASO # 0.1 10^3/uL (0.0-0.2); BASO % 0.9 % (0.0-1.0); EOS # 0.1 10^3/uL (0.0-0.5); HEMATOCRIT 44.3 % (36.0-47.0); HEMOGLOBIN 14.2 g/dl (12.0-15.5); LYMPH % 14.4 % (24.0-44.0); MEAN CORPUSCULAR HEMOGLOBIN 32.7 pg (27.0-33.0); MEAN CORPUSCULAR HGB CONC 32.1 g/dl (32.0-36.5); MEAN CORPUSCULAR VOLUME 102.1 fl (80.0-96.0); MONO # 0.6 10^3/uL (0.0-0.8); MONO % 9.1 % (2.0-8.0); NEUTROPHILS # 5.1 10^3/uL (1.5-8.5); NEUTROPHILS % 73.2 % (36.0-66.0); PLATELET COUNT, AUTOMATED 259 10^3/uL (150-450); RED BLOOD COUNT 4.34 10^6/uL (4.00-5.40)
[2022-07-08 12:24] LABS: DIGOXIN LEVEL 1.1 NG/ML (0.8-2.0)
[2022-07-08 12:28] LABS: ALBUMIN 3.8 G/DL (3.2-5.2); BILIRUBIN,TOTAL 0.6 MG/DL (0.3-1.2); CALCIUM LEVEL 9.6 MG/DL (8.3-10.6); CREATININE FOR GFR 1.64 MG/DL (0.55-1.30); GLOMERULAR FILTRATION RATE 31.5 (>32); POTASSIUM SERUM 4.3 MMOL/L (3.5-5.1); TOTAL PROTEIN 6.6 G/DL (5.7-8.2)
== END ==
LOC: M LAB REF 11:54
PROVIDERS: ATTEND Internal Medicine Cardiovascular Disease
DX: I48.0 Paroxysmal atrial fibrillation (principal); I34.0 Nonrheumatic mitral (valve) insufficiency; I25.10 Atherosclerotic heart disease of native coronary artery without angina pectoris; I50.32 Chronic diastolic (congestive) heart failure; R94.31 Abnormal electrocardiogram [ECG] [EKG]

== ENCOUNTER → 2022-10-05 | Outpatient (CLI) | payer MEDICARE, BC | LOC: M SOG 08:31 | PROVIDERS: ATTEND Orthopaedic Surgery | DX: M17.0 Bilateral primary osteoarthritis of knee (principal); M25.462 Effusion, left knee ==

== ENCOUNTER → 2022-10-25 | Outpatient (CLI) | payer MEDICARE, BC ==
[~2022-10-25] MED LIST changes: +SENN-111 PO; -SENN18TA PO
== END ==
LOC: M WUC 10:31
PROVIDERS: ATTEND Physician Assistant
DX: M25.572 Pain in left ankle and joints of left foot (principal); Z87.81 Personal history of (healed) traumatic fracture; M19.072 Primary osteoarthritis, left ankle and foot; S93.602A Unspecified sprain of left foot, initial encounter; X58.XXXA Exposure to other specified factors, initial encounter; Y92.9 Unspecified place or not applicable; Y93.9 Activity, unspecified; Y99.9 Unspecified external cause status

== ENCOUNTER 2022-10-31 03:19 | Inpatient (IN) | payer MEDICARE, BC ==
[~2022-10-31] VITALS: Ht 177.8 cm; Wt 106.5 kg
[2022-10-31] VITALS (8 sets, daily range): BP systolic 152–184; BP diastolic 70–88; TEMP 97.2–98.2; O2SAT 95–98
[2022-10-31] MEDS ORDERED: ONDANSETRON 4MG 2ML VIAL IV ONE (04:40)
[2022-10-31 04:42] LABS: BASO # 0.1 10^3/uL (0.0-0.2); BASO % 0.6 % (0.0-1.0); EOS # 0.1 10^3/uL (0.0-0.5); EOS % 0.9 % (0.0-3.0); HEMATOCRIT 41.2 % (36.0-47.0); HEMOGLOBIN 13.6 g/dl (12.0-15.5); LYMPH # 1.3 10^3/uL (1.5-5.0); MEAN CORPUSCULAR HEMOGLOBIN 32.6 pg (27.0-33.0); MEAN CORPUSCULAR VOLUME 98.8 fl (80.0-96.0); MONO # 0.6 10^3/uL (0.0-0.8); MONO % 5.3 % (2.0-8.0); NEUTROPHILS # 9.8 10^3/uL (1.5-8.5); NEUTROPHILS % 81.8 % (36.0-66.0); PLATELET COUNT, AUTOMATED 257 10^3/uL (150-450); RED BLOOD COUNT 4.17 10^6/uL (4.00-5.40); WHITE BLOOD COUNT 11.9 10^3/uL (4.0-10.0)
[2022-10-31] MEDS: MORPHINE 4 MG/ML 1ML VIAL IV PRN ×3 (04:43→19:34)
[2022-10-31 04:54] LABS: INR 1.06
[2022-10-31 05:07] LABS: CK-MB VALUE MASS < 1.0 NG/ML (<3.6); LIPASE 23 U/L (12-53)
[2022-10-31 05:09] LABS: ALBUMIN 3.9 G/DL (3.2-5.2); ALKALINE PHOSPHATASE 83 U/L (46-116); ALT/SGPT 17 U/L (7.0-40); AST/SGOT 16 U/L (<34); BILIRUBIN,DIRECT 0.2 MG/DL (<0.4); BILIRUBIN,TOTAL 0.6 MG/DL (0.3-1.2); BLOOD UREA NITROGEN 49 MG/DL (9-23); CALCIUM LEVEL 9.6 MG/DL (8.3-10.6); CARBON DIOXIDE LEVEL 22 MMOL/L (20-31); CHLORIDE LEVEL 102 MMOL/L (98-107); CPK CREATINE PHOSPHOKINASE 65 U/L (34-145); CREATININE FOR GFR 1.65 MG/DL (0.55-1.30); GLOMERULAR FILTRATION RATE 31.2 (>32); GLUCOSE, FASTING 139 MG/DL (74-106); MB/CK RELATIVE INDEX 1.53 (< OR =4); SODIUM LEVEL 135 MMOL/L (136-145); TOTAL PROTEIN 6.5 G/DL (5.7-8.2)
[2022-10-31] MEDS ORDERED: AMLO1TAB25 PO (05:50)
[2022-10-31] MEDS ORDERED: ERGO500029 PO (05:50)
[2022-10-31] MEDS ORDERED: ELIQ2.5T PO (05:50)
[2022-10-31] MEDS ORDERED: CARV3.12 PO (05:50)
[2022-10-31] MEDS ORDERED: ALPR0.5T3 PO (05:50)
[2022-10-31] MEDS ORDERED: SPIR-10 PO (05:50)
[2022-10-31] MEDS ORDERED: FURO40TA2 PO ×2 (05:50)
[2022-10-31] MEDS ORDERED: ROSU10TA6 PO (05:50)
[2022-10-31] MEDS ORDERED: FEBU80TA PO (05:50)
[2022-10-31] MEDS ORDERED: VENL37TA PO (05:50)
[2022-10-31] MEDS ORDERED: OMEP40CA5 PO (05:52)
[2022-10-31] MEDS ORDERED: MIRA3350 PO (05:52)
[2022-10-31] MEDS ORDERED: HOME MED LIST COMPLETE! XX SCH (05:55)
[2022-10-31] MEDS ORDERED: HYDROMORPHONE HCL 0.5 MG/ 0.5 ML SYRINGE IV PRN ×2 (06:40→09:55)
[2022-10-31] MEDS ORDERED: ALBUTEROL SULFATE 2.5MG/0.5ML INH NEB SOLN NEB PRN (06:40)
[2022-10-31] MEDS ORDERED: NS 1,000 ML IV SCH (06:40)
[2022-10-31] MEDS ORDERED: NITROGLYCERIN 0.4MG SUBL TABLET SL PRN (06:40)
[2022-10-31] MEDS ORDERED: ONDANSETRON 4MG 2ML VIAL IV PRN (07:20)
[2022-10-31] MEDS ORDERED: LABETALOL 100MG/20ML VIAL IV STA (08:03)
[2022-10-31] MEDS: FUROSEMIDE 80 MG TAB PO SCH (09:00)
[2022-10-31] MEDS: CARVedilol 3.125 MG TAB PO SCH ×2 (09:21→20:38)
[2022-10-31] MEDS: hydrALAZINE 20MG/ML 1ML VIAL IV PRN ×2 (09:22→17:43)
[2022-10-31] MEDS ORDERED: MIDAZOLAM INJ 2MG/2ML VIAL As Ordered ONE (11:29)
[2022-10-31] MEDS ORDERED: ROCURONIUM BROMIDE 50MG/5ML VIAL As Ordered ONE (11:29)
[2022-10-31] MEDS ORDERED: ONDANSETRON 4MG 2ML VIAL As Ordered ONE (11:29)
[2022-10-31] MEDS ORDERED: LIDOCAINE 2% 100MG/5ML SDV (FOR ANES.) As Ordered ONE (11:29)
[2022-10-31] MEDS ORDERED: fentaNYL 100 MCG/2 ML INJECTION As Ordered ONE (11:29)
[2022-10-31] MEDS ORDERED: propofoL 200 MG/20 ML VIAL As Ordered ONE (11:29)
[2022-10-31] MEDS: SPIRONOLACTONE 25 MG TAB PO SCH (11:58)
[2022-10-31] MEDS: FUROSEMIDE 40 MG TAB PO SCH (11:59)
[2022-10-31] MEDS: FEBUXOSTAT 40 MG TABLET (ULORIC) PO SCH (11:59)
[2022-10-31] MEDS: VENLAFAXINE 37.5 MG TAB PO SCH (11:59)
[2022-10-31] MEDS: ACETAMINOPHEN TAB 650MG DOSE (2X325MG) PO PRN ×2 (11:59→17:43)
[2022-10-31] MEDS: PANTOPRAZOLE 40MG TAB (PROTONIX) PO SCH (12:00)
[2022-10-31] MEDS ORDERED: VANCOMYCIN 1000MG/20ML VIAL As Ordered ONE (13:00)
[2022-10-31] MEDS ORDERED: PROTHROMBIN COMPLEX CONCEN IV ONE (13:00)
[2022-10-31] MEDS ORDERED: TRANEXAMIC ACID 100 MG/ML 10ML VIAL As Ordered ONE (13:00)
[2022-10-31] MEDS ORDERED: DILUENT IV ONE (13:00)
[2022-10-31] MEDS ORDERED: ceFAZolin 2 GM/D5W 50 ML IV BAG As Ordered ONE (13:01)
[2022-10-31] MEDS ORDERED: HYDROmorphone HCL 2MG/ML 1ML VIAL As Ordered ONE (13:31)
[2022-10-31] MEDS ORDERED: HYDROMORPHONE HCL 0.5 MG/ 0.5 ML SYRINGE IV ONE (13:35)
[2022-10-31] MEDS ORDERED: SUGAMMADEX SODIUM 500 MG/5 ML VIAL (BRIDION) As Ordered ONE (14:20)
[2022-10-31] MEDS ORDERED: ACETAMINOPHEN TAB 650MG DOSE (2X325MG) PO PRN (16:00)
[2022-10-31] MEDS: oxyCODONE 5MG TAB PO PRN (18:42)
[2022-10-31] MEDS: ROSUVASTATIN 10 MG TAB (CRESTOR) PO SCH (20:38)
[2022-10-31] MEDS: ALPRAZolam 0.5 MG TAB PO PRN (20:38)
[2022-10-31] MEDS: ceFAZolin SOD 1 GM in D5W MINI-BAG PLUS 50 ML IV SCH (21:38)
[2022-11-01] VITALS (20 sets, daily range): BP systolic 136–177; BP diastolic 57–72; TEMP 97.3–99.2; O2SAT 88–97
[2022-11-01] MEDS: hydrALAZINE 20MG/ML 1ML VIAL IV PRN (00:17)
[2022-11-01] MEDS: MORPHINE 4 MG/ML 1ML VIAL IV PRN ×3 (04:35→19:04)
[2022-11-01 05:41] LABS: HEMATOCRIT 37.4 % (36.0-47.0); MEAN CORPUSCULAR HEMOGLOBIN 32.5 pg (27.0-33.0); MEAN CORPUSCULAR HGB CONC 32.1 g/dl (32.0-36.5); MEAN CORPUSCULAR VOLUME 101.4 fl (80.0-96.0); PLATELET COUNT, AUTOMATED 235 10^3/uL (150-450); RED BLOOD COUNT 3.69 10^6/uL (4.00-5.40)
[2022-11-01 06:06] LABS: CALCIUM LEVEL 8.5 MG/DL (8.3-10.6); CREATININE FOR GFR 1.45 MG/DL (0.55-1.30); GLOMERULAR FILTRATION RATE 36.2 (>32); POTASSIUM SERUM 4.2 MMOL/L (3.5-5.1)
[2022-11-01] MEDS: ceFAZolin SOD 1 GM in D5W MINI-BAG PLUS 50 ML IV SCH ×2 (06:41→13:21)
[2022-11-01] MEDS: ENOXAPARIN 40MG/0.4ML SYRINGE (J1650 PER 10MG) SC SCH (10:01)
[2022-11-01] MEDS: FEBUXOSTAT 40 MG TABLET (ULORIC) PO SCH (10:01)
[2022-11-01] MEDS: CARVedilol 3.125 MG TAB PO SCH ×2 (10:01→20:11)
[2022-11-01] MEDS: VENLAFAXINE 37.5 MG TAB PO SCH (10:02)
[2022-11-01] MEDS: FUROSEMIDE 80 MG TAB PO SCH (10:02)
[2022-11-01] MEDS: SPIRONOLACTONE 25 MG TAB PO SCH (10:02)
[2022-11-01] MEDS: PANTOPRAZOLE 40MG TAB (PROTONIX) PO SCH (10:02)
[2022-11-01] MEDS: ALPRAZolam 0.5 MG TAB PO PRN ×2 (10:28→19:04)
[2022-11-01] MEDS: FUROSEMIDE 40 MG TAB PO SCH (12:38)
[2022-11-01] MEDS: oxyCODONE 5MG TAB PO PRN (16:22)
[2022-11-01] MEDS: ROSUVASTATIN 10 MG TAB (CRESTOR) PO SCH (20:10)
[2022-11-02] VITALS (19 sets, daily range): BP systolic 139–180; BP diastolic 63–72; TEMP 97.3–98.9; O2SAT 85–97
[2022-11-02] MEDS: MORPHINE 4 MG/ML 1ML VIAL IV PRN ×3 (00:45→09:56)
[2022-11-02] MEDS: ALPRAZolam 0.5 MG TAB PO PRN (00:45)
[2022-11-02] MEDS: hydrALAZINE 20MG/ML 1ML VIAL IV PRN ×2 (00:52→05:55)
[2022-11-02 06:09] LABS: HEMATOCRIT 36.7 % (36.0-47.0); HEMOGLOBIN 11.5 g/dl (12.0-15.5); MEAN CORPUSCULAR HEMOGLOBIN 31.8 pg (27.0-33.0); MEAN CORPUSCULAR HGB CONC 31.3 g/dl (32.0-36.5); MEAN CORPUSCULAR VOLUME 101.4 fl (80.0-96.0); PLATELET COUNT, AUTOMATED 217 10^3/uL (150-450); RED BLOOD COUNT 3.62 10^6/uL (4.00-5.40); WHITE BLOOD COUNT 11.8 10^3/uL (4.0-10.0)
[2022-11-02 07:30] LABS: CALCIUM LEVEL 9.1 MG/DL (8.3-10.6); CREATININE FOR GFR 1.61 MG/DL (0.55-1.30); GLOMERULAR FILTRATION RATE 32.1 (>32); MAGNESIUM LEVEL 2.1 MG/DL (1.8-2.4); POTASSIUM SERUM 4.3 MMOL/L (3.5-5.1)
[2022-11-02] MEDS: FEBUXOSTAT 40 MG TABLET (ULORIC) PO SCH (08:43)
[2022-11-02] MEDS: FUROSEMIDE 80 MG TAB PO SCH (08:44)
[2022-11-02] MEDS: PANTOPRAZOLE 40MG TAB (PROTONIX) PO SCH (08:44)
[2022-11-02] MEDS: VENLAFAXINE 37.5 MG TAB PO SCH (08:44)
[2022-11-02] MEDS: SPIRONOLACTONE 25 MG TAB PO SCH (08:44)
[2022-11-02] MEDS: ENOXAPARIN 40MG/0.4ML SYRINGE (J1650 PER 10MG) SC SCH (08:45)
[2022-11-02] MEDS: CARVedilol 3.125 MG TAB PO SCH (08:45)
[2022-11-02] MEDS: oxyCODONE 5MG TAB PO PRN (09:14)
[2022-11-02] MEDS ORDERED: FUROSEMIDE 40MG/4ML VIAL IV ONE (12:00)
[2022-11-02] MEDS ORDERED: OXYC-517 PO (12:19)
[2022-11-02] MEDS ORDERED: LOVE1INJ SC (12:19)
[2022-11-02] MEDS ORDERED: FUROSEMIDE 40 MG TAB PO ONE (18:00)
== END 2022-11-02 15:41 | DRG 522 ==
LOC: M ED 03:19 → EDBD 03:19 → M ED INP 07:23 → ENRESERV 08:12 → M PCU 10:24
PROVIDERS: ADMIT Internal Medicine; ATTEND Internal Medicine
PROC: 0SRS0JZ Replacement of Left Hip Joint, Femoral Surface with Synthetic Substitute, Open Approach (ICD-10-PCS; principal; 2022-10-31 12:30)
DX: S72.012A Unspecified intracapsular fracture of left femur, initial encounter for closed fracture (principal); I13.0 Hypertensive heart and chronic kidney disease with heart failure and stage 1 through stage 4 chronic kidney disease, or unspecified chronic kidney disease; N18.4 Chronic kidney disease, stage 4 (severe); I50.32 Chronic diastolic (congestive) heart failure; I16.0 Hypertensive urgency; F32.A Depression, unspecified; I48.91 Unspecified atrial fibrillation; R09.02 Hypoxemia; I25.10 Atherosclerotic heart disease of native coronary artery without angina pectoris; M10.9 Gout, unspecified; K21.9 Gastro-esophageal reflux disease without esophagitis; E78.5 Hyperlipidemia, unspecified; R09.89 Other specified symptoms and signs involving the circulatory and respiratory systems; F41.9 Anxiety disorder, unspecified; I25.2 Old myocardial infarction; Z90.49 Acquired absence of other specified parts of digestive tract; Z90.79 Acquired absence of other genital organ(s); W01.0XXA Fall on same level from slipping, tripping and stumbling without subsequent striking against object, initial encounter; Y92.009 Unspecified place in unspecified non-institutional (private) residence as the place of occurrence of the external cause

== ENCOUNTER 2022-11-02 14:16 | Inpatient (IN) | payer MEDICARE, BC ==
[~2022-11-02] VITALS: Ht 177.8 cm; Wt 108.1 kg
[~2022-11-02 14:16] MED LIST changes: +ALPR0.5T3 PO; +AMLO1TAB25 PO; +CARV3.12 PO; +ELIQ2.5T PO; +ERGO500029 PO; +FEBU80TA PO; +LOVE1INJ SC; +MIRA3350 PO; +OMEP40CA5 PO; +OXYC-517 PO; +ROSU10TA6 PO; +SPIR-10 PO; +VENL37TA PO
[2022-11-02] MEDS ORDERED: oxyCODONE 5MG TAB PO PRN (15:40)
[2022-11-02] MEDS ORDERED: BISACODYL 5MG TAB PO PRN (15:40)
[2022-11-02] MEDS ORDERED: NITROGLYCERIN 0.4MG SUBL TABLET SL PRN (15:40)
[2022-11-02] MEDS ORDERED: ALPRAZolam 0.5 MG TAB PO PRN (15:40)
[2022-11-02 16:00] VITALS: BP 147/70; TEMP 98.6; O2SAT 93
[2022-11-02] MEDS: REMEDY PHYTOPLEX Z-GUARD PASTE 113GM TUBE (FROM STOREROOM PRODUCT) TOP SCH ×2 (16:00→21:00)
[2022-11-02] MEDS: ACETAMINOPHEN 500 MG TAB PO SCH ×3 (16:00→21:00)
[2022-11-02] MEDS ORDERED: traZODone 25MG PER 1/2 TABLET PO PRN (17:10)
[2022-11-02 20:00] VITALS: BP 114/53; TEMP 98.1; O2SAT 92
[2022-11-02] MEDS ORDERED: COMBIVENT RESPIMAT 100-20MCG INHALER 4GM INH SCH (20:00)
[2022-11-02] MEDS ORDERED: SALIVA SUBSTITUTE(MOUTHKOTE) BTL MT SCH (21:00)
[2022-11-02] MEDS ORDERED: CARVedilol 3.125 MG TAB PO SCH (21:00)
[2022-11-02] MEDS ORDERED: DOCUSATE SODIUM 100MG CAPSULE PO SCH (21:00)
[2022-11-02] MEDS ORDERED: ROSUVASTATIN 10 MG TAB (CRESTOR) PO SCH (21:00)
[2022-11-02] MEDS ORDERED: SENNA 8.6 MG TAB (SENOKOT) PO SCH (21:00)
[2022-11-02 21:53] LABS: VENOUS BASE EXCESS 0.3 (-2.0-2.0); VENOUS HCO3 25.6 MMOL/L (23.0-27.0); VENOUS O2 SATURATION 79.6 % (60.0-80.0); VENOUS PARTIAL PRESSURE CO2 43.9 mmHg (38.0-50.0); VENOUS PARTIAL PRESSURE O2 40.5 mmHg (30.0-50.0); VENOUS PH 7.383 UNITS (7.330-7.430); VENOUS STANDARD HCO3 24.4 MMOL/L; VENOUS TOTAL CO2 26.9 MMOL/L (24.0-28.0)
[2022-11-02 22:45] VITALS: BP 126/60; O2SAT 95
[2022-11-02 23:33] VITALS: BP 112/54; TEMP 98.4; O2SAT 96
[2022-11-03 00:10] LABS: ABG BASE EXCESS -0.6 (-2.0-2.0); ABG HCO3 24.8 MMOL/L (22.0-26.0); ABG O2 SATURATION 95.1 % (95.0-99.0); ABG PARTIAL PRESSURE CO2 44.1 mmHg (35.0-45.0); ABG STANDARD HCO3 23.9 MMOL/L. (22.0-26.0); ABG TOTAL CO2 26.2 MMOL/L (23.0-31.0); ABG pH (ARTERIAL) 7.368 UNITS (7.350-7.450)
[2022-11-03] MEDS ORDERED: DEXTROSE 50% 50ML SYRINGE IV PRN (00:25)
[2022-11-03] MEDS ORDERED: GLUCOSE 4GM CHEW TABLET PO PRN (00:25)
[2022-11-03] MEDS ORDERED: GLUCAGON INJ 1MG VIAL SC PRN (00:25)
[2022-11-03 04:00] VITALS: O2SAT 86
[2022-11-03] MEDS ORDERED: IPRATROPIUM 0.5MG/ALBUTEROL 2.5MG INH SOL UD 3ML (DUONEB) NEB ONE (05:00)
[2022-11-03] MEDS ORDERED: ACETAMINOPHEN 500 MG TAB PO ONE (05:00)
[2022-11-03] MEDS ORDERED: FUROSEMIDE 40MG/4ML VIAL IV ONE ×2 (05:05→06:00)
[2022-11-03 05:26] LABS: VENOUS BASE EXCESS -2.8 (-2.0-2.0); VENOUS HCO3 23.1 MMOL/L (23.0-27.0); VENOUS O2 SATURATION 71.7 % (60.0-80.0); VENOUS PARTIAL PRESSURE CO2 44.9 mmHg (38.0-50.0); VENOUS PARTIAL PRESSURE O2 37.6 mmHg (30.0-50.0); VENOUS STANDARD HCO3 21.6 MMOL/L; VENOUS TOTAL CO2 24.5 MMOL/L (24.0-28.0)
[2022-11-03 05:28] LABS: BASO % 0.4 % (0.0-1.0); EOS # 0.3 10^3/uL (0.0-0.5); EOS % 2.8 % (0.0-3.0); HEMOGLOBIN 10.9 g/dl (12.0-15.5); LYMPH # 0.8 10^3/uL (1.5-5.0); LYMPH % 7.3 % (24.0-44.0); MEAN CORPUSCULAR HEMOGLOBIN 32.7 pg (27.0-33.0); MEAN CORPUSCULAR HGB CONC 32.1 g/dl (32.0-36.5); MEAN CORPUSCULAR VOLUME 102.1 fl (80.0-96.0); MONO # 0.8 10^3/uL (0.0-0.8); MONO % 7.3 % (2.0-8.0); NEUTROPHILS % 81.6 % (36.0-66.0); PLATELET COUNT, AUTOMATED 227 10^3/uL (150-450); RED BLOOD COUNT 3.33 10^6/uL (4.00-5.40); WHITE BLOOD COUNT 11.1 10^3/uL (4.0-10.0)
[2022-11-03 05:38] VITALS: BP 137/65; TEMP 98; O2SAT 94
[2022-11-03 05:54] LABS: ALBUMIN 3.2 G/DL (3.2-5.2); BILIRUBIN,TOTAL 0.7 MG/DL (0.3-1.2); CALCIUM LEVEL 9.3 MG/DL (8.3-10.6); CREATININE FOR GFR 1.73 MG/DL (0.55-1.30); GLOMERULAR FILTRATION RATE 29.5 (>32); POTASSIUM SERUM 3.8 MMOL/L (3.5-5.1); THYROID STIMULATING HORMONE 4.096 uIU/ML (0.55-4.78); TOTAL PROTEIN 6.1 G/DL (5.7-8.2)
[2022-11-03] MEDS ORDERED: FUROSEMIDE 80 MG TAB PO SCH (09:00)
[2022-11-03] MEDS ORDERED: ENOXAPARIN 40MG/0.4ML SYRINGE (J1650 PER 10MG) SC SCH ×2 (09:00→09:15)
[2022-11-03] MEDS ORDERED: SPIRONOLACTONE 25 MG TAB PO SCH (09:00)
[2022-11-03] MEDS ORDERED: FEBUXOSTAT 40 MG TABLET (ULORIC) PO SCH (09:00)
[2022-11-03] MEDS ORDERED: PANTOPRAZOLE 40MG TAB (PROTONIX) PO SCH (09:00)
[2022-11-03] MEDS ORDERED: VENLAFAXINE 37.5 MG TAB PO SCH (09:00)
[2022-11-03 09:35] LABS: HEMOGLOBIN A1c 5.6 % (4.0-6.0)
[2022-11-03 20:23] LABS: MAGNESIUM LEVEL 2.2 MG/DL (1.8-2.4)
[2022-11-05] MEDS ORDERED: APIXABAN 2.5 MG TAB (ELIQUIS) PO SCH ×2 (09:00→09:15)
[2022-11-05] MEDS ORDERED: ALPR0.25 PO (14:54)
[2022-11-05] MEDS ORDERED: FURO80TA2 PO (14:54)
[2022-11-05] MEDS ORDERED: OMEP-173 PO (14:54)
[2022-11-05] MEDS ORDERED: ASPI81CH8 PO (14:54)
[2022-11-05] MEDS ORDERED: ELIQ2.5T PO (14:54)
[2022-11-05] MEDS ORDERED: SIME80TA16 PO (14:54)
[2022-11-05] MEDS ORDERED: TRAM50TA2 PO (14:54)
[2022-11-05 19:25] VITALS: BP 133/63; TEMP 97.5; O2SAT 96
[2022-11-05] MEDS ORDERED: NITROGLYCERIN 0.4MG SUBL TABLET SL PRN (20:45)
[2022-11-05] MEDS: NYSTATIN 100,000 UNITS/GM TOPICAL PWD 15GM TOP SCH (21:00)
[2022-11-05] MEDS: REMEDY PHYTOPLEX Z-GUARD PASTE 113GM TUBE (FROM STOREROOM PRODUCT) TOP SCH (21:00)
[2022-11-05] MEDS: PANTOPRAZOLE 40MG TAB (PROTONIX) PO SCH (21:35)
[2022-11-05] MEDS: ROSUVASTATIN 10 MG TAB (CRESTOR) PO SCH (21:39)
[2022-11-05] MEDS: SUCRALFATE 1 GM TAB PO SCH (21:39)
[2022-11-05] MEDS: SIMETHICONE 80MG CHEW TAB PO SCH (21:39)
[2022-11-05] MEDS: CARVedilol 3.125 MG TAB PO SCH (21:40)
[2022-11-05] MEDS: ALPRAZolam 0.25 MG TAB PO PRN (21:44)
[2022-11-05] MEDS: traMADol 50 MG TAB PO PRN (21:47)
[2022-11-06] MEDS: APIXABAN 2.5 MG TAB (ELIQUIS) PO SCH ×3 (00:23→21:57)
[2022-11-06 05:19] VITALS: BP 120/59; TEMP 97; O2SAT 97
[2022-11-06] MEDS: traMADol 50 MG TAB PO PRN ×4 (05:55→21:57)
[2022-11-06 07:02] LABS: BASO % 0.6 % (0.0-1.0); EOS # 0.2 10^3/uL (0.0-0.5); EOS % 3.3 % (0.0-3.0); HEMATOCRIT 31.5 % (36.0-47.0); HEMOGLOBIN 10.4 g/dl (12.0-15.5); LYMPH # 0.9 10^3/uL (1.5-5.0); LYMPH % 13.3 % (24.0-44.0); MEAN CORPUSCULAR HEMOGLOBIN 33.1 pg (27.0-33.0); MEAN CORPUSCULAR VOLUME 100.3 fl (80.0-96.0); MONO # 0.9 10^3/uL (0.0-0.8); NEUTROPHILS # 4.8 10^3/uL (1.5-8.5); NEUTROPHILS % 68.7 % (36.0-66.0); PLATELET COUNT, AUTOMATED 291 10^3/uL (150-450); RED BLOOD COUNT 3.14 10^6/uL (4.00-5.40)
[2022-11-06 07:24] LABS: CALCIUM LEVEL 8.1 MG/DL (8.3-10.6); CREATININE FOR GFR 1.39 MG/DL (0.55-1.30); POTASSIUM SERUM 3.9 MMOL/L (3.5-5.1)
[2022-11-06] MEDS: REMEDY PHYTOPLEX Z-GUARD PASTE 113GM TUBE (FROM STOREROOM PRODUCT) TOP SCH ×3 (09:00→21:59)
[2022-11-06] MEDS: NYSTATIN 100,000 UNITS/GM TOPICAL PWD 15GM TOP SCH ×2 (09:00→22:00)
[2022-11-06] MEDS: SUCRALFATE 1 GM TAB PO SCH ×2 (09:39→21:57)
[2022-11-06] MEDS: SPIRONOLACTONE 25 MG TAB PO SCH (09:39)
[2022-11-06] MEDS: PANTOPRAZOLE 40MG TAB (PROTONIX) PO SCH ×2 (09:40→21:57)
[2022-11-06] MEDS: FEBUXOSTAT 40 MG TABLET (ULORIC) PO SCH (09:40)
[2022-11-06] MEDS: CARVedilol 3.125 MG TAB PO SCH ×2 (09:40→21:59)
[2022-11-06] MEDS: ASPIRIN 81MG ENTERIC TABLET PO SCH (09:40)
[2022-11-06] MEDS: FUROSEMIDE 80 MG TAB PO SCH ×2 (09:41→17:43)
[2022-11-06] MEDS: VENLAFAXINE 37.5 MG TAB PO SCH (09:41)
[2022-11-06] MEDS: FOLIC ACID 1MG TAB PO SCH (09:41)
[2022-11-06] MEDS: SIMETHICONE 80MG CHEW TAB PO SCH ×3 (09:41→21:57)
[2022-11-06 14:00] VITALS: BP 132/59; TEMP 98.6; O2SAT 95
[2022-11-06 19:30] VITALS: BP 145/71; TEMP 97.4; O2SAT 96
[2022-11-06] MEDS: ROSUVASTATIN 10 MG TAB (CRESTOR) PO SCH (21:57)
[2022-11-06] MEDS: ALPRAZolam 0.25 MG TAB PO PRN (21:58)
[2022-11-07] MEDS: traMADol 50 MG TAB PO PRN ×3 (04:25→18:07)
[2022-11-07 05:23] VITALS: BP 134/61; TEMP 97.5; O2SAT 97
[2022-11-07 08:06] LABS: BASO % 0.5 % (0.0-1.0); EOS # 0.3 10^3/uL (0.0-0.5); EOS % 3.1 % (0.0-3.0); HEMATOCRIT 32.4 % (36.0-47.0); HEMOGLOBIN 10.4 g/dl (12.0-15.5); LYMPH # 1.2 10^3/uL (1.5-5.0); LYMPH % 14.8 % (24.0-44.0); MEAN CORPUSCULAR HEMOGLOBIN 32.4 pg (27.0-33.0); MEAN CORPUSCULAR HGB CONC 32.1 g/dl (32.0-36.5); MEAN CORPUSCULAR VOLUME 100.9 fl (80.0-96.0); MONO # 0.8 10^3/uL (0.0-0.8); MONO % 10.5 % (2.0-8.0); NEUTROPHILS # 5.6 10^3/uL (1.5-8.5); NEUTROPHILS % 69.6 % (36.0-66.0); PLATELET COUNT, AUTOMATED 340 10^3/uL (150-450); RED BLOOD COUNT 3.21 10^6/uL (4.00-5.40)
[2022-11-07 08:15] LABS: CALCIUM LEVEL 8.3 MG/DL (8.3-10.6); CREATININE FOR GFR 1.47 MG/DL (0.55-1.30); GLOMERULAR FILTRATION RATE 35.6 (>32); MAGNESIUM LEVEL 2.3 MG/DL (1.8-2.4); POTASSIUM SERUM 3.7 MMOL/L (3.5-5.1)
[2022-11-07] MEDS: SIMETHICONE 80MG CHEW TAB PO SCH ×3 (08:19→20:57)
[2022-11-07] MEDS: SUCRALFATE 1 GM TAB PO SCH ×2 (08:19→20:56)
[2022-11-07] MEDS: FEBUXOSTAT 40 MG TABLET (ULORIC) PO SCH (08:19)
[2022-11-07] MEDS: ASPIRIN 81MG ENTERIC TABLET PO SCH (08:19)
[2022-11-07] MEDS: PANTOPRAZOLE 40MG TAB (PROTONIX) PO SCH ×2 (08:19→20:58)
[2022-11-07] MEDS: FUROSEMIDE 80 MG TAB PO SCH ×2 (08:20→16:58)
[2022-11-07] MEDS: FOLIC ACID 1MG TAB PO SCH (08:20)
[2022-11-07] MEDS: SPIRONOLACTONE 25 MG TAB PO SCH (08:20)
[2022-11-07] MEDS: CARVedilol 3.125 MG TAB PO SCH ×2 (08:20→20:58)
[2022-11-07] MEDS: APIXABAN 2.5 MG TAB (ELIQUIS) PO SCH ×2 (08:20→20:58)
[2022-11-07] MEDS: VENLAFAXINE 37.5 MG TAB PO SCH (08:20)
[2022-11-07] MEDS: MIRALAX *UNIT DOSE* 17GM PACKET PO PRN (08:22)
[2022-11-07] MEDS: SENOKOT S TAB PO SCH ×2 (08:23→20:58)
[2022-11-07] MEDS: REMEDY PHYTOPLEX Z-GUARD PASTE 113GM TUBE (FROM STOREROOM PRODUCT) TOP SCH ×3 (08:24→20:59)
[2022-11-07] MEDS: NYSTATIN 100,000 UNITS/GM TOPICAL PWD 15GM TOP SCH ×2 (08:24→20:59)
[2022-11-07] MEDS: ONDANSETRON 4MG ORAL DISINTEGRATING TAB PO PRN ×2 (10:43→20:57)
[2022-11-07 14:00] VITALS: BP 128/76; TEMP 98.5; O2SAT 95
[2022-11-07 20:00] VITALS: BP 201/81; TEMP 98.9; O2SAT 93
[2022-11-07 20:07] VITALS: BP 146/58
[2022-11-07] MEDS: ROSUVASTATIN 10 MG TAB (CRESTOR) PO SCH (20:57)
[2022-11-08] MEDS: ONDANSETRON 4MG ORAL DISINTEGRATING TAB PO PRN ×2 (05:53→20:39)
[2022-11-08 06:00] VITALS: BP 209/87; TEMP 96.7; O2SAT 93
[2022-11-08] MEDS ORDERED: **hydrALAZINE HCL** 25 MG TAB PO ONE (07:15)
[2022-11-08] MEDS: MOM 30ML SUSPENSION UDC PO PRN (07:32)
[2022-11-08] MEDS: MIRALAX *UNIT DOSE* 17GM PACKET PO PRN (07:32)
[2022-11-08] MEDS: SIMETHICONE 80MG CHEW TAB PO SCH ×3 (07:32→20:28)
[2022-11-08] MEDS: SUCRALFATE 1 GM TAB PO SCH ×2 (07:33→20:28)
[2022-11-08] MEDS: FEBUXOSTAT 40 MG TABLET (ULORIC) PO SCH (07:33)
[2022-11-08] MEDS: ASPIRIN 81MG ENTERIC TABLET PO SCH (07:33)
[2022-11-08] MEDS: CARVedilol 3.125 MG TAB PO SCH ×2 (07:33→20:29)
[2022-11-08] MEDS: SENOKOT S TAB PO SCH ×2 (07:33→20:29)
[2022-11-08] MEDS: VENLAFAXINE 37.5 MG TAB PO SCH (07:33)
[2022-11-08] MEDS: APIXABAN 2.5 MG TAB (ELIQUIS) PO SCH ×2 (07:34→20:29)
[2022-11-08] MEDS: FUROSEMIDE 80 MG TAB PO SCH ×2 (07:34→17:32)
[2022-11-08] MEDS: PANTOPRAZOLE 40MG TAB (PROTONIX) PO SCH ×2 (07:34→20:29)
[2022-11-08] MEDS: FOLIC ACID 1MG TAB PO SCH (07:34)
[2022-11-08] MEDS: SPIRONOLACTONE 25 MG TAB PO SCH (07:34)
[2022-11-08] MEDS: NYSTATIN 100,000 UNITS/GM TOPICAL PWD 15GM TOP SCH ×2 (07:35→20:30)
[2022-11-08] MEDS: REMEDY PHYTOPLEX Z-GUARD PASTE 113GM TUBE (FROM STOREROOM PRODUCT) TOP SCH ×3 (07:35→20:30)
[2022-11-08 07:56] LABS: BASO # 0.1 10^3/uL (0.0-0.2); BASO % 0.8 % (0.0-1.0); EOS # 0.3 10^3/uL (0.0-0.5); EOS % 2.9 % (0.0-3.0); HEMATOCRIT 34.3 % (36.0-47.0); HEMOGLOBIN 10.9 g/dl (12.0-15.5); LYMPH % 12.1 % (24.0-44.0); MEAN CORPUSCULAR HEMOGLOBIN 32.1 pg (27.0-33.0); MEAN CORPUSCULAR HGB CONC 31.8 g/dl (32.0-36.5); MEAN CORPUSCULAR VOLUME 100.9 fl (80.0-96.0); MONO # 0.7 10^3/uL (0.0-0.8); MONO % 8.2 % (2.0-8.0); NEUTROPHILS # 6.4 10^3/uL (1.5-8.5); NEUTROPHILS % 74.4 % (36.0-66.0); PLATELET COUNT, AUTOMATED 402 10^3/uL (150-450); WHITE BLOOD COUNT 8.5 10^3/uL (4.0-10.0)
[2022-11-08 08:15] LABS: CALCIUM LEVEL 9.2 MG/DL (8.3-10.6); CREATININE FOR GFR 1.59 MG/DL (0.55-1.30); GLOMERULAR FILTRATION RATE 32.5 (>32); MAGNESIUM LEVEL 2.3 MG/DL (1.8-2.4); POTASSIUM SERUM 4.2 MMOL/L (3.5-5.1)
[2022-11-08] MEDS: traMADol 50 MG TAB PO PRN ×2 (08:54→20:39)
[2022-11-08] MEDS: **hydrALAZINE HCL** 25 MG TAB PO SCH ×2 (12:00→17:32)
[2022-11-08 14:00] VITALS: BP 128/78; TEMP 97.6; O2SAT 90
[2022-11-08 20:00] VITALS: BP 162/71; TEMP 99; O2SAT 94
[2022-11-08] MEDS: ROSUVASTATIN 10 MG TAB (CRESTOR) PO SCH (20:28)
[2022-11-08] MEDS: ALPRAZolam 0.25 MG TAB PO PRN (20:38)
[2022-11-09 00:04] VITALS: BP 152/58
[2022-11-09] MEDS: **hydrALAZINE HCL** 25 MG TAB PO SCH ×5 (00:08→23:32)
[2022-11-09] MEDS: traMADol 50 MG TAB PO PRN (03:10)
[2022-11-09 06:11] VITALS: BP 136/54; TEMP 97.9; O2SAT 97
[2022-11-09 06:39] LABS: BASO # 0.1 10^3/uL (0.0-0.2); BASO % 0.7 % (0.0-1.0); EOS # 0.2 10^3/uL (0.0-0.5); EOS % 2.4 % (0.0-3.0); HEMATOCRIT 29.8 % (36.0-47.0); HEMOGLOBIN 9.6 g/dl (12.0-15.5); LYMPH # 1.4 10^3/uL (1.5-5.0); LYMPH % 13.3 % (24.0-44.0); MEAN CORPUSCULAR HEMOGLOBIN 32.4 pg (27.0-33.0); MEAN CORPUSCULAR HGB CONC 32.2 g/dl (32.0-36.5); MEAN CORPUSCULAR VOLUME 100.7 fl (80.0-96.0); MONO # 1.2 10^3/uL (0.0-0.8); MONO % 12.2 % (2.0-8.0); NEUTROPHILS # 7.1 10^3/uL (1.5-8.5); NEUTROPHILS % 69.7 % (36.0-66.0); PLATELET COUNT, AUTOMATED 363 10^3/uL (150-450); RED BLOOD COUNT 2.96 10^6/uL (4.00-5.40); WHITE BLOOD COUNT 10.2 10^3/uL (4.0-10.0)
[2022-11-09] MEDS: ONDANSETRON 4MG ORAL DISINTEGRATING TAB PO PRN ×2 (08:16→23:32)
[2022-11-09] MEDS: SIMETHICONE 80MG CHEW TAB PO SCH ×3 (08:17→20:28)
[2022-11-09] MEDS: SPIRONOLACTONE 25 MG TAB PO SCH (08:17)
[2022-11-09] MEDS: FUROSEMIDE 80 MG TAB PO SCH ×2 (08:17→16:56)
[2022-11-09] MEDS: SENOKOT S TAB PO SCH ×2 (08:17→20:29)
[2022-11-09] MEDS: SUCRALFATE 1 GM TAB PO SCH ×2 (08:18→20:29)
[2022-11-09] MEDS: FOLIC ACID 1MG TAB PO SCH (08:18)
[2022-11-09] MEDS: APIXABAN 2.5 MG TAB (ELIQUIS) PO SCH ×2 (08:18→20:28)
[2022-11-09] MEDS: ASPIRIN 81MG ENTERIC TABLET PO SCH (08:18)
[2022-11-09] MEDS: PANTOPRAZOLE 40MG TAB (PROTONIX) PO SCH ×2 (08:18→20:28)
[2022-11-09] MEDS: FEBUXOSTAT 40 MG TABLET (ULORIC) PO SCH (08:18)
[2022-11-09] MEDS: VENLAFAXINE 37.5 MG TAB PO SCH (08:18)
[2022-11-09] MEDS: CARVedilol 3.125 MG TAB PO SCH ×2 (08:19→20:29)
[2022-11-09] MEDS: NYSTATIN 100,000 UNITS/GM TOPICAL PWD 15GM TOP SCH ×2 (08:19→20:30)
[2022-11-09] MEDS: REMEDY PHYTOPLEX Z-GUARD PASTE 113GM TUBE (FROM STOREROOM PRODUCT) TOP SCH ×3 (08:20→20:30)
[2022-11-09] MEDS: LACTOBACILLUS ACIDOPHILUS CAP (BACID) PO SCH ×2 (10:32→18:24)
[2022-11-09] MEDS: DOXYCYCLINE HYCLATE 100MG TABLET PO SCH ×2 (10:32→20:29)
[2022-11-09 14:00] VITALS: BP 140/60; TEMP 98.1; O2SAT 96
[2022-11-09] MEDS ORDERED: SIMETHICONE 80MG CHEW TAB PO SCH (16:00)
[2022-11-09] MEDS: ACETAMINOPHEN 500 MG TAB PO SCH ×2 (16:56→20:29)
[2022-11-09] MEDS: ROSUVASTATIN 10 MG TAB (CRESTOR) PO SCH (20:29)
[2022-11-09] MEDS: LIDOCAINE 5% (LIDODERM) PATCH TD SCH (20:30)
[2022-11-09 21:03] VITALS: BP 129/60; TEMP 97.2; O2SAT 94
[2022-11-09] MEDS: ALPRAZolam 0.25 MG TAB PO PRN (23:00)
[2022-11-10] MEDS ORDERED: ACETAMINOPHEN TAB 650MG DOSE (2X325MG) PO ONE (04:45)
[2022-11-10] MEDS: **hydrALAZINE HCL** 25 MG TAB PO SCH ×4 (05:33→23:45)
[2022-11-10 05:36] VITALS: BP 140/62; TEMP 97.4; O2SAT 96
[2022-11-10] MEDS: LACTOBACILLUS ACIDOPHILUS CAP (BACID) PO SCH ×2 (07:24→17:06)
[2022-11-10] MEDS: FOLIC ACID 1MG TAB PO SCH (07:24)
[2022-11-10] MEDS: FEBUXOSTAT 40 MG TABLET (ULORIC) PO SCH (07:24)
[2022-11-10] MEDS: ACETAMINOPHEN 500 MG TAB PO SCH ×3 (07:25→20:18)
[2022-11-10] MEDS: APIXABAN 2.5 MG TAB (ELIQUIS) PO SCH ×2 (07:25→20:18)
[2022-11-10] MEDS: FUROSEMIDE 80 MG TAB PO SCH ×2 (07:25→17:06)
[2022-11-10] MEDS: ASPIRIN 81MG ENTERIC TABLET PO SCH (07:25)
[2022-11-10] MEDS: PANTOPRAZOLE 40MG TAB (PROTONIX) PO SCH ×2 (07:25→20:18)
[2022-11-10] MEDS: VENLAFAXINE 37.5 MG TAB PO SCH (07:25)
[2022-11-10] MEDS: DOXYCYCLINE HYCLATE 100MG TABLET PO SCH ×2 (07:25→20:18)
[2022-11-10] MEDS: SPIRONOLACTONE 25 MG TAB PO SCH (07:25)
[2022-11-10] MEDS: SIMETHICONE 80MG CHEW TAB PO SCH ×3 (07:26→20:17)
[2022-11-10] MEDS: SENOKOT S TAB PO SCH ×2 (07:26→20:18)
[2022-11-10] MEDS: CARVedilol 3.125 MG TAB PO SCH ×2 (07:26→20:17)
[2022-11-10] MEDS: SUCRALFATE 1 GM TAB PO SCH ×2 (07:26→20:18)
[2022-11-10] MEDS: NYSTATIN 100,000 UNITS/GM TOPICAL PWD 15GM TOP SCH ×2 (07:29→20:19)
[2022-11-10] MEDS: REMEDY PHYTOPLEX Z-GUARD PASTE 113GM TUBE (FROM STOREROOM PRODUCT) TOP SCH ×3 (07:29→20:19)
[2022-11-10] MEDS ORDERED: MOM 30ML SUSPENSION UDC PO ONE (11:05)
[2022-11-10 11:18] VITALS: BP 141/65
[2022-11-10 14:00] VITALS: BP 143/65; TEMP 98.2; O2SAT 96
[2022-11-10 17:11] VITALS: BP 128/54
[2022-11-10 20:00] VITALS: BP 140/89; TEMP 98.6; O2SAT 94
[2022-11-10] MEDS: LIDOCAINE 5% (LIDODERM) PATCH TD SCH (20:18)
[2022-11-10] MEDS: ALPRAZolam 0.25 MG TAB PO PRN (20:18)
[2022-11-10] MEDS: ROSUVASTATIN 10 MG TAB (CRESTOR) PO SCH (20:18)
[2022-11-10] MEDS: MIRALAX *UNIT DOSE* 17GM PACKET PO PRN (20:24)
[2022-11-11] MEDS: **hydrALAZINE HCL** 25 MG TAB PO SCH ×4 (05:40→23:44)
[2022-11-11 06:00] VITALS: BP 120/78; TEMP 98.2; O2SAT 95
[2022-11-11] MEDS: FEBUXOSTAT 40 MG TABLET (ULORIC) PO SCH (07:45)
[2022-11-11] MEDS: FUROSEMIDE 80 MG TAB PO SCH (07:45)
[2022-11-11] MEDS: VENLAFAXINE 37.5 MG TAB PO SCH (07:45)
[2022-11-11] MEDS: PANTOPRAZOLE 40MG TAB (PROTONIX) PO SCH ×2 (07:45→20:47)
[2022-11-11] MEDS: FOLIC ACID 1MG TAB PO SCH (07:45)
[2022-11-11] MEDS: ASPIRIN 81MG ENTERIC TABLET PO SCH (07:45)
[2022-11-11] MEDS: SPIRONOLACTONE 25 MG TAB PO SCH (07:46)
[2022-11-11] MEDS: SUCRALFATE 1 GM TAB PO SCH ×2 (07:46→20:46)
[2022-11-11] MEDS: CARVedilol 3.125 MG TAB PO SCH ×2 (07:46→20:47)
[2022-11-11] MEDS: DOXYCYCLINE HYCLATE 100MG TABLET PO SCH ×2 (07:46→20:48)
[2022-11-11] MEDS: SIMETHICONE 80MG CHEW TAB PO SCH ×3 (07:46→20:48)
[2022-11-11] MEDS: LACTOBACILLUS ACIDOPHILUS CAP (BACID) PO SCH ×2 (07:46→18:00)
[2022-11-11] MEDS: SENOKOT S TAB PO SCH ×2 (07:47→20:46)
[2022-11-11] MEDS: ACETAMINOPHEN 500 MG TAB PO SCH ×3 (07:47→20:48)
[2022-11-11] MEDS: APIXABAN 2.5 MG TAB (ELIQUIS) PO SCH ×2 (07:47→20:46)
[2022-11-11] MEDS: NYSTATIN 100,000 UNITS/GM TOPICAL PWD 15GM TOP SCH ×2 (08:23→20:48)
[2022-11-11] MEDS: REMEDY PHYTOPLEX Z-GUARD PASTE 113GM TUBE (FROM STOREROOM PRODUCT) TOP SCH ×3 (08:24→20:49)
[2022-11-11] MEDS: LIDOCAINE 5% (LIDODERM) PATCH TD SCH (09:00)
[2022-11-11 10:03] LABS: BASO # 0.1 10^3/uL (0.0-0.2); BASO % 0.6 % (0.0-1.0); EOS # 0.3 10^3/uL (0.0-0.5); EOS % 2.3 % (0.0-3.0); HEMATOCRIT 29.9 % (36.0-47.0); HEMOGLOBIN 9.7 g/dl (12.0-15.5); LYMPH # 0.9 10^3/uL (1.5-5.0); LYMPH % 8.1 % (24.0-44.0); MEAN CORPUSCULAR HEMOGLOBIN 32.8 pg (27.0-33.0); MEAN CORPUSCULAR HGB CONC 32.4 g/dl (32.0-36.5); MONO % 8.7 % (2.0-8.0); NEUTROPHILS # 9.2 10^3/uL (1.5-8.5); NEUTROPHILS % 79.3 % (36.0-66.0); PLATELET COUNT, AUTOMATED 409 10^3/uL (150-450); RED BLOOD COUNT 2.96 10^6/uL (4.00-5.40); WHITE BLOOD COUNT 11.6 10^3/uL (4.0-10.0)
[2022-11-11 10:29] LABS: CALCIUM LEVEL 7.7 MG/DL (8.3-10.6); CREATININE FOR GFR 1.84 MG/DL (0.55-1.30); GLOMERULAR FILTRATION RATE 27.5 (>32); POTASSIUM SERUM 4.3 MMOL/L (3.5-5.1)
[2022-11-11 11:12] LABS: URIC ACID 4.4 MG/DL (3.1-7.8)
[2022-11-11 14:00] VITALS: BP 140/58; TEMP 97.6; O2SAT 95
[2022-11-11 17:21] VITALS: BP 120/54
[2022-11-11 20:00] VITALS: BP 138/70; TEMP 97.8; O2SAT 96
[2022-11-11] MEDS: ROSUVASTATIN 10 MG TAB (CRESTOR) PO SCH (20:48)
[2022-11-11] MEDS: ALPRAZolam 0.25 MG TAB PO PRN (20:48)
[2022-11-11] MEDS: traMADol 50 MG TAB PO PRN (22:15)
[2022-11-12] MEDS: traMADol 50 MG TAB PO PRN ×2 (01:57→07:30)
[2022-11-12] MEDS: **hydrALAZINE HCL** 25 MG TAB PO SCH ×3 (05:25→17:59)
[2022-11-12 06:00] VITALS: BP 150/70; TEMP 98.9; O2SAT 95
[2022-11-12] MEDS: ACETAMINOPHEN 500 MG TAB PO SCH ×3 (07:30→20:32)
[2022-11-12] MEDS: NYSTATIN 100,000 UNITS/GM TOPICAL PWD 15GM TOP SCH ×2 (07:32→20:39)
[2022-11-12] MEDS: LIDOCAINE 5% (LIDODERM) PATCH TD SCH (07:33)
[2022-11-12] MEDS: REMEDY PHYTOPLEX Z-GUARD PASTE 113GM TUBE (FROM STOREROOM PRODUCT) TOP SCH ×3 (07:33→20:39)
[2022-11-12] MEDS: SUCRALFATE 1 GM TAB PO SCH ×2 (08:24→20:38)
[2022-11-12] MEDS: FEBUXOSTAT 40 MG TABLET (ULORIC) PO SCH (08:24)
[2022-11-12] MEDS: APIXABAN 2.5 MG TAB (ELIQUIS) PO SCH ×2 (08:24→20:38)
[2022-11-12] MEDS: PANTOPRAZOLE 40MG TAB (PROTONIX) PO SCH ×2 (08:24→20:38)
[2022-11-12] MEDS: SIMETHICONE 80MG CHEW TAB PO SCH ×3 (08:24→20:32)
[2022-11-12] MEDS: DOXYCYCLINE HYCLATE 100MG TABLET PO SCH ×2 (08:24→20:38)
[2022-11-12] MEDS: SENOKOT S TAB PO SCH ×2 (08:24→20:39)
[2022-11-12] MEDS: ASPIRIN 81MG ENTERIC TABLET PO SCH (08:24)
[2022-11-12] MEDS: FUROSEMIDE 80 MG TAB PO SCH (08:25)
[2022-11-12] MEDS: LACTOBACILLUS ACIDOPHILUS CAP (BACID) PO SCH ×2 (08:25→17:59)
[2022-11-12] MEDS: VENLAFAXINE 37.5 MG TAB PO SCH (08:25)
[2022-11-12] MEDS: FOLIC ACID 1MG TAB PO SCH (08:25)
[2022-11-12] MEDS: SPIRONOLACTONE 25 MG TAB PO SCH (08:25)
[2022-11-12] MEDS: CARVedilol 3.125 MG TAB PO SCH ×2 (08:26→20:38)
[2022-11-12 14:00] VITALS: TEMP 98.3; O2SAT 97
[2022-11-12 20:00] VITALS: BP 178/64; TEMP 98.1; O2SAT 95
[2022-11-12 20:37] VITALS: BP 170/64
[2022-11-12] MEDS: ROSUVASTATIN 10 MG TAB (CRESTOR) PO SCH (20:38)
[2022-11-12] MEDS: ALPRAZolam 0.25 MG TAB PO PRN (20:53)
[2022-11-13 00:09] VITALS: BP 140/78
[2022-11-13] MEDS: **hydrALAZINE HCL** 25 MG TAB PO SCH ×4 (00:15→18:00)
[2022-11-13 06:00] VITALS: BP 160/80; TEMP 96.4; O2SAT 97
[2022-11-13] MEDS: SIMETHICONE 80MG CHEW TAB PO SCH ×3 (08:43→20:37)
[2022-11-13] MEDS: ASPIRIN 81MG ENTERIC TABLET PO SCH (08:43)
[2022-11-13] MEDS: SPIRONOLACTONE 25 MG TAB PO SCH (08:44)
[2022-11-13] MEDS: FUROSEMIDE 80 MG TAB PO SCH (08:44)
[2022-11-13] MEDS: VENLAFAXINE 37.5 MG TAB PO SCH (08:44)
[2022-11-13] MEDS: SUCRALFATE 1 GM TAB PO SCH ×2 (08:44→20:37)
[2022-11-13] MEDS: DOXYCYCLINE HYCLATE 100MG TABLET PO SCH ×2 (08:44→20:37)
[2022-11-13] MEDS: LACTOBACILLUS ACIDOPHILUS CAP (BACID) PO SCH ×2 (08:44→18:04)
[2022-11-13] MEDS: ACETAMINOPHEN 500 MG TAB PO SCH ×3 (08:44→20:37)
[2022-11-13] MEDS: APIXABAN 2.5 MG TAB (ELIQUIS) PO SCH ×2 (08:45→20:37)
[2022-11-13] MEDS: FEBUXOSTAT 40 MG TABLET (ULORIC) PO SCH (08:45)
[2022-11-13] MEDS: PANTOPRAZOLE 40MG TAB (PROTONIX) PO SCH ×2 (08:45→20:37)
[2022-11-13] MEDS: SENOKOT S TAB PO SCH ×2 (08:45→20:37)
[2022-11-13] MEDS: FOLIC ACID 1MG TAB PO SCH (08:45)
[2022-11-13] MEDS: CARVedilol 3.125 MG TAB PO SCH ×2 (08:45→20:38)
[2022-11-13] MEDS: REMEDY PHYTOPLEX Z-GUARD PASTE 113GM TUBE (FROM STOREROOM PRODUCT) TOP SCH ×3 (08:46→21:00)
[2022-11-13] MEDS: NYSTATIN 100,000 UNITS/GM TOPICAL PWD 15GM TOP SCH ×2 (08:46→21:03)
[2022-11-13] MEDS: LIDOCAINE 5% (LIDODERM) PATCH TD SCH (08:46)
[2022-11-13 11:39] LABS: BASO # 0.1 10^3/uL (0.0-0.2); BASO % 0.7 % (0.0-1.0); EOS # 0.4 10^3/uL (0.0-0.5); EOS % 3.7 % (0.0-3.0); HEMATOCRIT 30.6 % (36.0-47.0); HEMOGLOBIN 9.9 g/dl (12.0-15.5); LYMPH % 8.9 % (24.0-44.0); MEAN CORPUSCULAR HEMOGLOBIN 32.6 pg (27.0-33.0); MEAN CORPUSCULAR HGB CONC 32.4 g/dl (32.0-36.5); MEAN CORPUSCULAR VOLUME 100.7 fl (80.0-96.0); MONO # 0.8 10^3/uL (0.0-0.8); MONO % 7.4 % (2.0-8.0); NEUTROPHILS # 8.6 10^3/uL (1.5-8.5); NEUTROPHILS % 78.5 % (36.0-66.0); PLATELET COUNT, AUTOMATED 553 10^3/uL (150-450); RED BLOOD COUNT 3.04 10^6/uL (4.00-5.40)
[2022-11-13] MEDS: LevoFLOXacin 250 MG TABLET PO SCH (12:20)
[2022-11-13 14:00] VITALS: BP 134/68; TEMP 98.1; O2SAT 95
[2022-11-13 20:00] VITALS: BP 132/56; TEMP 98.1; O2SAT 96
[2022-11-13] MEDS: ROSUVASTATIN 10 MG TAB (CRESTOR) PO SCH (20:37)
[2022-11-13] MEDS: ALPRAZolam 0.25 MG TAB PO PRN (20:37)
[2022-11-14] MEDS ORDERED: oxyCODONE 5MG TAB PO ONE (01:00)
[2022-11-14] MEDS ORDERED: PILL CUTTER 1 EACH XX PRN (01:15)
[2022-11-14] MEDS: **hydrALAZINE HCL** 25 MG TAB PO SCH ×4 (05:52→17:16)
[2022-11-14] MEDS: LevoFLOXacin 250 MG TABLET PO SCH (05:52)
[2022-11-14 06:00] VITALS: BP 152/70; TEMP 97.4; O2SAT 97
[2022-11-14 06:24] LABS: BASO # 0.1 10^3/uL (0.0-0.2); BASO % 0.9 % (0.0-1.0); EOS # 0.6 10^3/uL (0.0-0.5); EOS % 5.6 % (0.0-3.0); HEMATOCRIT 30.5 % (36.0-47.0); HEMOGLOBIN 9.6 g/dl (12.0-15.5); LYMPH # 1.3 10^3/uL (1.5-5.0); LYMPH % 12.3 % (24.0-44.0); MEAN CORPUSCULAR HEMOGLOBIN 31.8 pg (27.0-33.0); MEAN CORPUSCULAR HGB CONC 31.5 g/dl (32.0-36.5); MONO # 0.9 10^3/uL (0.0-0.8); MONO % 8.4 % (2.0-8.0); NEUTROPHILS # 7.4 10^3/uL (1.5-8.5); NEUTROPHILS % 72.1 % (36.0-66.0); PLATELET COUNT, AUTOMATED 547 10^3/uL (150-450); RED BLOOD COUNT 3.02 10^6/uL (4.00-5.40); WHITE BLOOD COUNT 10.2 10^3/uL (4.0-10.0)
[2022-11-14 06:46] LABS: CALCIUM LEVEL 8.1 MG/DL (8.3-10.6); CREATININE FOR GFR 1.72 MG/DL (0.55-1.30); GLOMERULAR FILTRATION RATE 29.7 (>32); POTASSIUM SERUM 4.3 MMOL/L (3.5-5.1)
[2022-11-14 08:13] VITALS: BP 175/73; TEMP 98.1; O2SAT 98
[2022-11-14] MEDS: REMEDY PHYTOPLEX Z-GUARD PASTE 113GM TUBE (FROM STOREROOM PRODUCT) TOP SCH ×3 (08:41→21:00)
[2022-11-14] MEDS: LIDOCAINE 5% (LIDODERM) PATCH TD SCH (08:41)
[2022-11-14] MEDS: SENOKOT S TAB PO SCH ×2 (08:45→21:23)
[2022-11-14] MEDS: SPIRONOLACTONE 25 MG TAB PO SCH (08:45)
[2022-11-14] MEDS: DOXYCYCLINE HYCLATE 100MG TABLET PO SCH ×2 (08:45→21:23)
[2022-11-14] MEDS: ASPIRIN 81MG ENTERIC TABLET PO SCH (08:45)
[2022-11-14] MEDS: APIXABAN 2.5 MG TAB (ELIQUIS) PO SCH ×2 (08:45→21:23)
[2022-11-14] MEDS: SIMETHICONE 80MG CHEW TAB PO SCH ×3 (08:45→21:24)
[2022-11-14] MEDS: FEBUXOSTAT 40 MG TABLET (ULORIC) PO SCH (08:45)
[2022-11-14] MEDS: FOLIC ACID 1MG TAB PO SCH (08:46)
[2022-11-14] MEDS: FUROSEMIDE 80 MG TAB PO SCH (08:46)
[2022-11-14] MEDS: CARVedilol 3.125 MG TAB PO SCH ×2 (08:46→21:24)
[2022-11-14] MEDS: PANTOPRAZOLE 40MG TAB (PROTONIX) PO SCH ×2 (08:46→21:23)
[2022-11-14] MEDS: VENLAFAXINE 37.5 MG TAB PO SCH (08:46)
[2022-11-14] MEDS: LACTOBACILLUS ACIDOPHILUS CAP (BACID) PO SCH ×2 (08:46→17:16)
[2022-11-14] MEDS: SUCRALFATE 1 GM TAB PO SCH ×2 (08:46→21:23)
[2022-11-14] MEDS: NYSTATIN 100,000 UNITS/GM TOPICAL PWD 15GM TOP SCH ×2 (08:47→21:25)
[2022-11-14] MEDS: ACETAMINOPHEN 500 MG TAB PO SCH ×3 (08:47→21:23)
[2022-11-14 10:00] VITALS: BP 151/67
[2022-11-14 14:00] VITALS: BP 155/70; TEMP 97.3; O2SAT 96
[2022-11-14 20:25] VITALS: BP 144/65; TEMP 97.7; O2SAT 96
[2022-11-14] MEDS: ALPRAZolam 0.25 MG TAB PO PRN (21:24)
[2022-11-14] MEDS: ROSUVASTATIN 10 MG TAB (CRESTOR) PO SCH (21:24)
[2022-11-15 06:05] VITALS: BP 138/62; TEMP 97.7; O2SAT 96
[2022-11-15] MEDS: **hydrALAZINE HCL** 25 MG TAB PO SCH ×4 (06:11→17:17)
[2022-11-15] MEDS: LevoFLOXacin 250 MG TABLET PO SCH (06:11)
[2022-11-15] MEDS: LIDOCAINE 5% (LIDODERM) PATCH TD SCH (09:00)
[2022-11-15] MEDS: REMEDY PHYTOPLEX Z-GUARD PASTE 113GM TUBE (FROM STOREROOM PRODUCT) TOP SCH ×3 (09:00→20:54)
[2022-11-15] MEDS: SIMETHICONE 80MG CHEW TAB PO SCH ×3 (10:03→20:43)
[2022-11-15] MEDS: APIXABAN 2.5 MG TAB (ELIQUIS) PO SCH ×2 (10:04→20:43)
[2022-11-15] MEDS: ASPIRIN 81MG ENTERIC TABLET PO SCH (10:04)
[2022-11-15] MEDS: LACTOBACILLUS ACIDOPHILUS CAP (BACID) PO SCH ×2 (10:04→17:16)
[2022-11-15] MEDS: PANTOPRAZOLE 40MG TAB (PROTONIX) PO SCH ×2 (10:04→20:43)
[2022-11-15] MEDS: SUCRALFATE 1 GM TAB PO SCH ×2 (10:04→20:43)
[2022-11-15] MEDS: SENOKOT S TAB PO SCH ×2 (10:04→20:54)
[2022-11-15] MEDS: FEBUXOSTAT 40 MG TABLET (ULORIC) PO SCH (10:04)
[2022-11-15] MEDS: FUROSEMIDE 80 MG TAB PO SCH (10:05)
[2022-11-15] MEDS: VENLAFAXINE 37.5 MG TAB PO SCH (10:05)
[2022-11-15] MEDS: SPIRONOLACTONE 25 MG TAB PO SCH (10:05)
[2022-11-15] MEDS: FOLIC ACID 1MG TAB PO SCH (10:05)
[2022-11-15] MEDS: DOXYCYCLINE HYCLATE 100MG TABLET PO SCH ×2 (10:05→20:43)
[2022-11-15] MEDS: CARVedilol 3.125 MG TAB PO SCH ×2 (10:06→20:43)
[2022-11-15] MEDS: ACETAMINOPHEN 500 MG TAB PO SCH ×3 (10:07→20:44)
[2022-11-15] MEDS: NYSTATIN 100,000 UNITS/GM TOPICAL PWD 15GM TOP SCH ×2 (10:08→20:44)
[2022-11-15] MEDS ORDERED: ONDANSETRON 4MG ORAL DISINTEGRATING TAB PO ONE (11:30)
[2022-11-15 14:00] VITALS: BP 133/63; TEMP 97; O2SAT 95
[2022-11-15 20:21] VITALS: BP 138/62; TEMP 98.1; O2SAT 96
[2022-11-15] MEDS: ROSUVASTATIN 10 MG TAB (CRESTOR) PO SCH (20:43)
[2022-11-15] MEDS: ALPRAZolam 0.25 MG TAB PO PRN (20:43)
[2022-11-16] MEDS: **hydrALAZINE HCL** 25 MG TAB PO SCH ×4 (05:51→17:53)
[2022-11-16 06:01] VITALS: BP 138/62; TEMP 98.2; O2SAT 96
[2022-11-16] MEDS: FOLIC ACID 1MG TAB PO SCH (08:19)
[2022-11-16] MEDS: LACTOBACILLUS ACIDOPHILUS CAP (BACID) PO SCH ×2 (08:19→17:52)
[2022-11-16] MEDS: PANTOPRAZOLE 40MG TAB (PROTONIX) PO SCH ×2 (08:19→21:04)
[2022-11-16] MEDS: VENLAFAXINE 37.5 MG TAB PO SCH (08:20)
[2022-11-16] MEDS: SPIRONOLACTONE 25 MG TAB PO SCH (08:20)
[2022-11-16] MEDS: DOXYCYCLINE HYCLATE 100MG TABLET PO SCH ×2 (08:20→21:04)
[2022-11-16] MEDS: APIXABAN 2.5 MG TAB (ELIQUIS) PO SCH ×2 (08:20→21:03)
[2022-11-16] MEDS: FEBUXOSTAT 40 MG TABLET (ULORIC) PO SCH (08:21)
[2022-11-16] MEDS: FUROSEMIDE 80 MG TAB PO SCH (08:21)
[2022-11-16] MEDS: SIMETHICONE 80MG CHEW TAB PO SCH ×5 (08:21→21:04)
[2022-11-16] MEDS: SUCRALFATE 1 GM TAB PO SCH ×2 (08:21→21:04)
[2022-11-16] MEDS: ACETAMINOPHEN 500 MG TAB PO SCH ×3 (08:21→21:04)
[2022-11-16] MEDS: ASPIRIN 81MG ENTERIC TABLET PO SCH (08:21)
[2022-11-16] MEDS: SENOKOT S TAB PO SCH ×2 (08:22→21:04)
[2022-11-16] MEDS: LIDOCAINE 5% (LIDODERM) PATCH TD SCH (08:22)
[2022-11-16] MEDS: CARVedilol 3.125 MG TAB PO SCH ×2 (08:23→21:04)
[2022-11-16] MEDS: NYSTATIN 100,000 UNITS/GM TOPICAL PWD 15GM TOP SCH ×2 (08:23→21:05)
[2022-11-16] MEDS: REMEDY PHYTOPLEX Z-GUARD PASTE 113GM TUBE (FROM STOREROOM PRODUCT) TOP SCH ×3 (08:23→21:00)
[2022-11-16 12:43] LABS: CALCIUM LEVEL 8.6 MG/DL (8.3-10.6); CREATININE FOR GFR 1.74 MG/DL (0.55-1.30); GLOMERULAR FILTRATION RATE 29.3 (>32); POTASSIUM SERUM 4.3 MMOL/L (3.5-5.1)
[2022-11-16 14:00] VITALS: BP 131/61; TEMP 98.2; O2SAT 96
[2022-11-16 14:48] LABS: BASO # 0.1 10^3/uL (0.0-0.2); EOS # 0.7 10^3/uL (0.0-0.5); EOS % 5.5 % (0.0-3.0); HEMATOCRIT 33.2 % (36.0-47.0); HEMOGLOBIN 10.3 g/dl (12.0-15.5); LYMPH # 1.3 10^3/uL (1.5-5.0); LYMPH % 10.4 % (24.0-44.0); MEAN CORPUSCULAR VOLUME 103.1 fl (80.0-96.0); NEUTROPHILS # 9.4 10^3/uL (1.5-8.5); NEUTROPHILS % 74.5 % (36.0-66.0); PLATELET COUNT, AUTOMATED 675 10^3/uL (150-450); RED BLOOD COUNT 3.22 10^6/uL (4.00-5.40); WHITE BLOOD COUNT 12.6 10^3/uL (4.0-10.0)
[2022-11-16 20:00] VITALS: BP 130/78; TEMP 98.1; O2SAT 97
[2022-11-16] MEDS: ALPRAZolam 0.25 MG TAB PO PRN (21:03)
[2022-11-16] MEDS: ROSUVASTATIN 10 MG TAB (CRESTOR) PO SCH (21:03)
[2022-11-17 06:00] VITALS: BP 130/80; TEMP 98.5; O2SAT 95
[2022-11-17] MEDS: **hydrALAZINE HCL** 25 MG TAB PO SCH ×4 (06:00→17:46)
[2022-11-17] MEDS: SIMETHICONE 80MG CHEW TAB PO SCH ×4 (08:20→20:22)
[2022-11-17] MEDS: VENLAFAXINE 37.5 MG TAB PO SCH (08:21)
[2022-11-17] MEDS: DOXYCYCLINE HYCLATE 100MG TABLET PO SCH ×2 (08:21→20:22)
[2022-11-17] MEDS: APIXABAN 2.5 MG TAB (ELIQUIS) PO SCH ×2 (08:21→20:22)
[2022-11-17] MEDS: ACETAMINOPHEN 500 MG TAB PO SCH ×3 (08:21→20:24)
[2022-11-17] MEDS: LACTOBACILLUS ACIDOPHILUS CAP (BACID) PO SCH ×2 (08:21→17:43)
[2022-11-17] MEDS: FUROSEMIDE 80 MG TAB PO SCH (08:21)
[2022-11-17] MEDS: ASPIRIN 81MG ENTERIC TABLET PO SCH (08:21)
[2022-11-17] MEDS: FOLIC ACID 1MG TAB PO SCH (08:21)
[2022-11-17] MEDS: SUCRALFATE 1 GM TAB PO SCH ×2 (08:21→20:22)
[2022-11-17] MEDS: SPIRONOLACTONE 25 MG TAB PO SCH (08:22)
[2022-11-17] MEDS: PANTOPRAZOLE 40MG TAB (PROTONIX) PO SCH ×2 (08:22→20:22)
[2022-11-17] MEDS: FEBUXOSTAT 40 MG TABLET (ULORIC) PO SCH (08:22)
[2022-11-17] MEDS: CARVedilol 3.125 MG TAB PO SCH ×2 (08:22→20:25)
[2022-11-17] MEDS: REMEDY PHYTOPLEX Z-GUARD PASTE 113GM TUBE (FROM STOREROOM PRODUCT) TOP SCH ×3 (08:23→20:23)
[2022-11-17] MEDS: LIDOCAINE 5% (LIDODERM) PATCH TD SCH ×2 (08:23→09:00)
[2022-11-17] MEDS: NYSTATIN 100,000 UNITS/GM TOPICAL PWD 15GM TOP SCH ×2 (08:23→20:23)
[2022-11-17] MEDS: SENOKOT S TAB PO SCH ×2 (08:23→20:23)
[2022-11-17 14:00] VITALS: BP 141/63; TEMP 98.8; O2SAT 97
[2022-11-17 20:00] VITALS: BP 130/70; TEMP 98; O2SAT 94
[2022-11-17] MEDS: ROSUVASTATIN 10 MG TAB (CRESTOR) PO SCH (20:22)
[2022-11-17] MEDS ORDERED: GABAPENTIN 100 MG CAP PO SCH (21:00)
[2022-11-18] VITALS: BP 130/62
[2022-11-18] MEDS: ALPRAZolam 0.25 MG TAB PO PRN ×2 (00:22→20:00)
[2022-11-18 06:00] VITALS: BP 130/80; TEMP 97.5; O2SAT 94
[2022-11-18] MEDS: **hydrALAZINE HCL** 25 MG TAB PO SCH ×5 (06:00→23:35)
[2022-11-18 06:05] LABS: BASO # 0.1 10^3/uL (0.0-0.2); BASO % 1.4 % (0.0-1.0); EOS # 0.7 10^3/uL (0.0-0.5); EOS % 9.4 % (0.0-3.0); HEMATOCRIT 28.2 % (36.0-47.0); HEMOGLOBIN 9.1 g/dl (12.0-15.5); LYMPH # 1.3 10^3/uL (1.5-5.0); LYMPH % 17.2 % (24.0-44.0); MEAN CORPUSCULAR HEMOGLOBIN 32.5 pg (27.0-33.0); MEAN CORPUSCULAR HGB CONC 32.3 g/dl (32.0-36.5); MEAN CORPUSCULAR VOLUME 100.7 fl (80.0-96.0); MONO # 0.7 10^3/uL (0.0-0.8); MONO % 9.2 % (2.0-8.0); NEUTROPHILS # 4.6 10^3/uL (1.5-8.5); NEUTROPHILS % 62.4 % (36.0-66.0); PLATELET COUNT, AUTOMATED 485 10^3/uL (150-450); WHITE BLOOD COUNT 7.4 10^3/uL (4.0-10.0)
[2022-11-18] MEDS: LIDOCAINE 5% (LIDODERM) PATCH TD SCH (09:00)
[2022-11-18] MEDS: REMEDY PHYTOPLEX Z-GUARD PASTE 113GM TUBE (FROM STOREROOM PRODUCT) TOP SCH ×3 (09:00→20:03)
[2022-11-18] MEDS: SUCRALFATE 1 GM TAB PO SCH ×2 (09:09→19:59)
[2022-11-18] MEDS: SENOKOT S TAB PO SCH ×2 (09:09→19:36)
[2022-11-18] MEDS: DOXYCYCLINE HYCLATE 100MG TABLET PO SCH ×2 (09:09→19:59)
[2022-11-18] MEDS: FEBUXOSTAT 40 MG TABLET (ULORIC) PO SCH (09:09)
[2022-11-18] MEDS: ASPIRIN 81MG ENTERIC TABLET PO SCH (09:09)
[2022-11-18] MEDS: LACTOBACILLUS ACIDOPHILUS CAP (BACID) PO SCH ×2 (09:09→17:04)
[2022-11-18] MEDS: SPIRONOLACTONE 25 MG TAB PO SCH (09:10)
[2022-11-18] MEDS: PANTOPRAZOLE 40MG TAB (PROTONIX) PO SCH ×2 (09:10→19:59)
[2022-11-18] MEDS: APIXABAN 2.5 MG TAB (ELIQUIS) PO SCH ×2 (09:10→19:59)
[2022-11-18] MEDS: FUROSEMIDE 80 MG TAB PO SCH (09:10)
[2022-11-18] MEDS: SIMETHICONE 80MG CHEW TAB PO SCH ×4 (09:10→19:59)
[2022-11-18] MEDS: FOLIC ACID 1MG TAB PO SCH (09:10)
[2022-11-18] MEDS: CARVedilol 3.125 MG TAB PO SCH ×2 (09:12→20:02)
[2022-11-18] MEDS: ACETAMINOPHEN 500 MG TAB PO SCH ×3 (09:13→20:00)
[2022-11-18] MEDS: NYSTATIN 100,000 UNITS/GM TOPICAL PWD 15GM TOP SCH ×2 (09:15→20:03)
[2022-11-18] MEDS: VENLAFAXINE 37.5 MG TAB PO SCH (10:39)
[2022-11-18] MEDS ORDERED: oxyCODONE 5MG TAB PO PRN (11:45)
[2022-11-18 14:00] VITALS: BP 147/67; TEMP 97.3; O2SAT 97
[2022-11-18] MEDS: NORTRIPTYLINE 10 MG CAP PO SCH (19:59)
[2022-11-18 20:00] VITALS: BP 132/60; TEMP 98.4; O2SAT 95
[2022-11-18] MEDS: ROSUVASTATIN 10 MG TAB (CRESTOR) PO SCH (20:00)
[2022-11-19] MEDS: **hydrALAZINE HCL** 25 MG TAB PO SCH ×3 (05:44→17:46)
[2022-11-19 06:00] VITALS: BP 148/67; TEMP 98.8; O2SAT 95
[2022-11-19] MEDS: FOLIC ACID 1MG TAB PO SCH (07:22)
[2022-11-19] MEDS: FEBUXOSTAT 40 MG TABLET (ULORIC) PO SCH (07:22)
[2022-11-19] MEDS: ASPIRIN 81MG ENTERIC TABLET PO SCH (07:22)
[2022-11-19] MEDS: SUCRALFATE 1 GM TAB PO SCH ×2 (07:22→20:33)
[2022-11-19] MEDS: LACTOBACILLUS ACIDOPHILUS CAP (BACID) PO SCH ×2 (07:22→17:31)
[2022-11-19] MEDS: PANTOPRAZOLE 40MG TAB (PROTONIX) PO SCH ×2 (07:22→20:33)
[2022-11-19] MEDS: VENLAFAXINE 37.5 MG TAB PO SCH (07:23)
[2022-11-19] MEDS: SPIRONOLACTONE 25 MG TAB PO SCH (07:23)
[2022-11-19] MEDS: APIXABAN 2.5 MG TAB (ELIQUIS) PO SCH ×2 (07:23→20:33)
[2022-11-19] MEDS: SIMETHICONE 80MG CHEW TAB PO SCH ×4 (07:23→20:33)
[2022-11-19] MEDS: CARVedilol 3.125 MG TAB PO SCH ×2 (07:23→19:55)
[2022-11-19] MEDS: DOXYCYCLINE HYCLATE 100MG TABLET PO SCH ×2 (07:23→20:33)
[2022-11-19] MEDS: ACETAMINOPHEN 500 MG TAB PO SCH ×3 (07:23→20:34)
[2022-11-19] MEDS: FUROSEMIDE 80 MG TAB PO SCH (07:23)
[2022-11-19] MEDS: SENOKOT S TAB PO SCH ×2 (07:24→19:35)
[2022-11-19 07:30] LABS: CALCIUM LEVEL 8.2 MG/DL (8.3-10.6); CREATININE FOR GFR 1.44 MG/DL (0.55-1.30); GLOMERULAR FILTRATION RATE 36.5 (>32); POTASSIUM SERUM 4.1 MMOL/L (3.5-5.1)
[2022-11-19] MEDS: NYSTATIN 100,000 UNITS/GM TOPICAL PWD 15GM TOP SCH ×2 (08:49→20:34)
[2022-11-19] MEDS: REMEDY PHYTOPLEX Z-GUARD PASTE 113GM TUBE (FROM STOREROOM PRODUCT) TOP SCH ×3 (08:49→19:04)
[2022-11-19] MEDS: LIDOCAINE 5% (LIDODERM) PATCH TD SCH (08:49)
[2022-11-19 14:00] VITALS: BP 148/72; TEMP 89.2; TEMP 98.2; O2SAT 94
[2022-11-19 20:00] VITALS: BP 123/56; TEMP 98.3; O2SAT 94
[2022-11-19] MEDS: ROSUVASTATIN 10 MG TAB (CRESTOR) PO SCH (20:33)
[2022-11-19] MEDS: NORTRIPTYLINE 10 MG CAP PO SCH (20:33)
[2022-11-19] MEDS: ALPRAZolam 0.25 MG TAB PO PRN (20:33)
[2022-11-20] MEDS: **hydrALAZINE HCL** 25 MG TAB PO SCH ×4 (00:01→17:46)
[2022-11-20] MEDS: ACETAMINOPHEN 500 MG TAB PO SCH ×3 (05:51→20:29)
[2022-11-20 06:00] VITALS: BP 157/70; TEMP 98.1; O2SAT 95
[2022-11-20] MEDS: FEBUXOSTAT 40 MG TABLET (ULORIC) PO SCH (08:17)
[2022-11-20] MEDS: DOXYCYCLINE HYCLATE 100MG TABLET PO SCH ×2 (08:17→20:30)
[2022-11-20] MEDS: ASPIRIN 81MG ENTERIC TABLET PO SCH (08:17)
[2022-11-20] MEDS: PANTOPRAZOLE 40MG TAB (PROTONIX) PO SCH ×2 (08:17→20:31)
[2022-11-20] MEDS: SPIRONOLACTONE 25 MG TAB PO SCH (08:17)
[2022-11-20] MEDS: CARVedilol 3.125 MG TAB PO SCH ×2 (08:17→20:30)
[2022-11-20] MEDS: APIXABAN 2.5 MG TAB (ELIQUIS) PO SCH ×2 (08:17→20:30)
[2022-11-20] MEDS: FUROSEMIDE 80 MG TAB PO SCH (08:17)
[2022-11-20] MEDS: SENOKOT S TAB PO SCH ×2 (08:18→20:28)
[2022-11-20] MEDS: FOLIC ACID 1MG TAB PO SCH (08:18)
[2022-11-20] MEDS: SIMETHICONE 80MG CHEW TAB PO SCH ×4 (08:18→20:29)
[2022-11-20] MEDS: LACTOBACILLUS ACIDOPHILUS CAP (BACID) PO SCH ×2 (08:18→17:13)
[2022-11-20] MEDS: SUCRALFATE 1 GM TAB PO SCH ×2 (08:18→20:31)
[2022-11-20] MEDS: VENLAFAXINE 37.5 MG TAB PO SCH (08:20)
[2022-11-20] MEDS: NYSTATIN 100,000 UNITS/GM TOPICAL PWD 15GM TOP SCH ×2 (08:21→20:32)
[2022-11-20] MEDS: LIDOCAINE 5% (LIDODERM) PATCH TD SCH (08:21)
[2022-11-20] MEDS: REMEDY PHYTOPLEX Z-GUARD PASTE 113GM TUBE (FROM STOREROOM PRODUCT) TOP SCH ×3 (08:21→20:28)
[2022-11-20] MEDS: MOM 30ML SUSPENSION UDC PO PRN (12:33)
[2022-11-20 14:00] VITALS: BP 122/62; TEMP 98.6; O2SAT 95
[2022-11-20 20:00] VITALS: BP 148/70; TEMP 98.2; O2SAT 95
[2022-11-20] MEDS: ALPRAZolam 0.25 MG TAB PO PRN (20:30)
[2022-11-20] MEDS: ROSUVASTATIN 10 MG TAB (CRESTOR) PO SCH (20:31)
[2022-11-20] MEDS: NORTRIPTYLINE 10 MG CAP PO SCH (20:31)
[2022-11-21 00:43] VITALS: BP 160/60
[2022-11-21] MEDS: **hydrALAZINE HCL** 25 MG TAB PO SCH ×4 (00:46→17:21)
[2022-11-21 05:29] VITALS: BP 162/84; TEMP 97.8; O2SAT 95
[2022-11-21 05:30] LABS: BASO # 0.1 10^3/uL (0.0-0.2); EOS # 0.9 10^3/uL (0.0-0.5); EOS % 12.3 % (0.0-3.0); HEMOGLOBIN 10.1 g/dl (12.0-15.5); LYMPH # 1.2 10^3/uL (1.5-5.0); LYMPH % 15.9 % (24.0-44.0); MEAN CORPUSCULAR HEMOGLOBIN 31.9 pg (27.0-33.0); MEAN CORPUSCULAR HGB CONC 31.6 g/dl (32.0-36.5); MEAN CORPUSCULAR VOLUME 100.9 fl (80.0-96.0); MONO # 0.8 10^3/uL (0.0-0.8); MONO % 10.3 % (2.0-8.0); NEUTROPHILS # 4.6 10^3/uL (1.5-8.5); NEUTROPHILS % 60.1 % (36.0-66.0); PLATELET COUNT, AUTOMATED 483 10^3/uL (150-450); RED BLOOD COUNT 3.17 10^6/uL (4.00-5.40); WHITE BLOOD COUNT 7.7 10^3/uL (4.0-10.0)
[2022-11-21 06:00] VITALS: BP 162/84; TEMP 97.8; O2SAT 95
[2022-11-21 06:09] LABS: CALCIUM LEVEL 8.5 MG/DL (8.3-10.6); CREATININE FOR GFR 1.44 MG/DL (0.55-1.30); GLOMERULAR FILTRATION RATE 36.5 (>32); POTASSIUM SERUM 4.2 MMOL/L (3.5-5.1)
[2022-11-21 06:50] VITALS: BP 148/60
[2022-11-21] MEDS: SIMETHICONE 80MG CHEW TAB PO SCH ×4 (08:41→21:16)
[2022-11-21] MEDS: ASPIRIN 81MG ENTERIC TABLET PO SCH (08:42)
[2022-11-21] MEDS: ACETAMINOPHEN 500 MG TAB PO SCH ×3 (08:42→21:16)
[2022-11-21] MEDS: PANTOPRAZOLE 40MG TAB (PROTONIX) PO SCH ×2 (08:43→21:15)
[2022-11-21] MEDS: SUCRALFATE 1 GM TAB PO SCH ×2 (08:43→21:16)
[2022-11-21] MEDS: SPIRONOLACTONE 25 MG TAB PO SCH (08:43)
[2022-11-21] MEDS: APIXABAN 2.5 MG TAB (ELIQUIS) PO SCH ×2 (08:43→21:16)
[2022-11-21] MEDS: FOLIC ACID 1MG TAB PO SCH (08:43)
[2022-11-21] MEDS: FEBUXOSTAT 40 MG TABLET (ULORIC) PO SCH (08:43)
[2022-11-21] MEDS: LACTOBACILLUS ACIDOPHILUS CAP (BACID) PO SCH ×2 (08:43→17:20)
[2022-11-21] MEDS: VENLAFAXINE 37.5 MG TAB PO SCH (08:44)
[2022-11-21] MEDS: LIDOCAINE 5% (LIDODERM) PATCH TD SCH (08:44)
[2022-11-21] MEDS: FUROSEMIDE 80 MG TAB PO SCH (08:44)
[2022-11-21] MEDS: DOXYCYCLINE HYCLATE 100MG TABLET PO SCH ×2 (08:44→21:15)
[2022-11-21] MEDS: CARVedilol 3.125 MG TAB PO SCH ×2 (08:44→21:16)
[2022-11-21] MEDS: SENOKOT S TAB PO SCH ×2 (08:44→21:16)
[2022-11-21] MEDS: REMEDY PHYTOPLEX Z-GUARD PASTE 113GM TUBE (FROM STOREROOM PRODUCT) TOP SCH ×3 (08:45→21:00)
[2022-11-21] MEDS: NYSTATIN 100,000 UNITS/GM TOPICAL PWD 15GM TOP SCH ×2 (08:45→21:17)
[2022-11-21 14:00] VITALS: BP 141/64; TEMP 96.8; O2SAT 98
[2022-11-21 20:00] VITALS: BP 110/70; TEMP 98; O2SAT 94
[2022-11-21] MEDS: NORTRIPTYLINE 10 MG CAP PO SCH (21:15)
[2022-11-21] MEDS: ALPRAZolam 0.25 MG TAB PO PRN (21:15)
[2022-11-21] MEDS: ROSUVASTATIN 10 MG TAB (CRESTOR) PO SCH (21:16)
[2022-11-22] MEDS: **hydrALAZINE HCL** 25 MG TAB PO SCH ×2 (05:21)
[2022-11-22 06:00] VITALS: BP 160/70; TEMP 97.2; O2SAT 97
[2022-11-22] MEDS ORDERED: NITR0.4S14 SL (07:50)
[2022-11-22] MEDS ORDERED: SPIR-10 PO (07:50)
[2022-11-22] MEDS ORDERED: CARV3.12 PO (07:50)
[2022-11-22] MEDS ORDERED: PANT40TA29 PO (07:50)
[2022-11-22] MEDS ORDERED: SUCR1TA PO (07:50)
[2022-11-22] MEDS ORDERED: ASPI81CH8 PO (07:50)
[2022-11-22] MEDS ORDERED: AMLO1TAB25 PO (07:50)
[2022-11-22] MEDS ORDERED: NORT10CA2 PO (07:50)
[2022-11-22] MEDS ORDERED: FURO80TA2 PO (07:50)
[2022-11-22] MEDS ORDERED: OXYC-517 PO (07:50)
[2022-11-22] MEDS ORDERED: VENL37TA PO (07:50)
[2022-11-22] MEDS ORDERED: ELIQ2.5T PO (07:50)
[2022-11-22] MEDS ORDERED: ALPR0.25 PO (07:50)
[2022-11-22] MEDS ORDERED: SIME80TA16 PO (07:50)
[2022-11-22] MEDS ORDERED: ROSU10TA6 PO (07:50)
[2022-11-22] MEDS ORDERED: FEBU80TA PO (07:50)
[2022-11-22] MEDS ORDERED: HYDR25TA PO (07:53)
[2022-11-22] MEDS: ASPIRIN 81MG ENTERIC TABLET PO SCH (08:12)
[2022-11-22] MEDS: SIMETHICONE 80MG CHEW TAB PO SCH (08:12)
[2022-11-22] MEDS: VENLAFAXINE 37.5 MG TAB PO SCH (08:13)
[2022-11-22] MEDS: PANTOPRAZOLE 40MG TAB (PROTONIX) PO SCH (08:13)
[2022-11-22] MEDS: FUROSEMIDE 80 MG TAB PO SCH (08:13)
[2022-11-22] MEDS: ACETAMINOPHEN 500 MG TAB PO SCH (08:13)
[2022-11-22] MEDS: APIXABAN 2.5 MG TAB (ELIQUIS) PO SCH (08:13)
[2022-11-22] MEDS: FEBUXOSTAT 40 MG TABLET (ULORIC) PO SCH (08:13)
[2022-11-22] MEDS: LACTOBACILLUS ACIDOPHILUS CAP (BACID) PO SCH (08:13)
[2022-11-22] MEDS: FOLIC ACID 1MG TAB PO SCH (08:13)
[2022-11-22] MEDS: SUCRALFATE 1 GM TAB PO SCH (08:13)
[2022-11-22] MEDS: DOXYCYCLINE HYCLATE 100MG TABLET PO SCH (08:14)
[2022-11-22] MEDS: SPIRONOLACTONE 25 MG TAB PO SCH (08:14)
[2022-11-22] MEDS: SENOKOT S TAB PO SCH (08:14)
[2022-11-22 08:15] VITALS: BP 146/67
[2022-11-22] MEDS: NYSTATIN 100,000 UNITS/GM TOPICAL PWD 15GM TOP SCH (08:15)
[2022-11-22] MEDS: CARVedilol 3.125 MG TAB PO SCH (08:15)
[2022-11-22] MEDS: REMEDY PHYTOPLEX Z-GUARD PASTE 113GM TUBE (FROM STOREROOM PRODUCT) TOP SCH (08:15)
[2022-11-22] MEDS: LIDOCAINE 5% (LIDODERM) PATCH TD SCH (08:16)
[2022-11-25] MEDS ORDERED: APIXABAN 2.5 MG TAB (ELIQUIS) PO SCH (14:45)
[2022-11-25] MEDS ORDERED: ENOXAPARIN 40MG/0.4ML SYRINGE (J1650 PER 10MG) SC SCH (14:45)
== END 2022-11-22 11:45 | disposition home health service (06) | DRG 560 ==
LOC: EDSTATUS 14:37 → M PM&R 15:42 → UNDOADMOB 15:42 → M PM&R 15:42 → UNDOADMIN 15:45 → M PM&R 15:45 → UNDODISIN 11-03 05:44 → INTOOBSV 11-05 19:18 → M PM&R 11-05 19:18 → UNDOADMOB 11-05 19:18 → OBSVTOIN 11-05 19:18 → UNDOADMOB 11-05 20:32 → M PM&R 11-05 20:32 → EEVIPCON 11-05 20:32 → UNDODISIN 11-22 11:45
PROVIDERS: ADMIT Physical Medicine & Rehabilitation; ATTEND Physical Medicine & Rehabilitation
DX: S72.012D Unspecified intracapsular fracture of left femur, subsequent encounter for closed fracture with routine healing (principal); N18.4 Chronic kidney disease, stage 4 (severe); I13.0 Hypertensive heart and chronic kidney disease with heart failure and stage 1 through stage 4 chronic kidney disease, or unspecified chronic kidney disease; N39.0 Urinary tract infection, site not specified; I48.91 Unspecified atrial fibrillation; R26.89 Other abnormalities of gait and mobility; F41.9 Anxiety disorder, unspecified; I25.2 Old myocardial infarction; I50.9 Heart failure, unspecified; G47.33 Obstructive sleep apnea (adult) (pediatric); E78.5 Hyperlipidemia, unspecified; F32.A Depression, unspecified; Z96.642 Presence of left artificial hip joint; Z74.09 Other reduced mobility; Z74.1 Need for assistance with personal care; R25.1 Tremor, unspecified; D64.9 Anemia, unspecified; Z90.11 Acquired absence of right breast and nipple; Z90.49 Acquired absence of other specified parts of digestive tract; Z79.01 Long term (current) use of anticoagulants; Z79.82 Long term (current) use of aspirin; Z79.899 Other long term (current) drug therapy; Z88.0 Allergy status to penicillin; Z88.2 Allergy status to sulfonamides; Z88.5 Allergy status to narcotic agent; Z88.8 Allergy status to other drugs, medicaments and biological substances; Z66 Do not resuscitate; F03.90 Unspecified dementia, unspecified severity, without behavioral disturbance, psychotic disturbance, mood disturbance, and anxiety; M10.9 Gout, unspecified; K21.9 Gastro-esophageal reflux disease without esophagitis; B96.5 Pseudomonas (aeruginosa) (mallei) (pseudomallei) as the cause of diseases classified elsewhere

== ENCOUNTER 2022-11-03 05:09 | Inpatient (IN) | payer MEDICARE, BC ==
[~2022-11-03] VITALS: Ht 172.7 cm; Wt 111.4 kg
[2022-11-03] VITALS (7 sets, daily range): BP systolic 138–166; BP diastolic 62–68; TEMP 97.6–99; O2SAT 90–97
[2022-11-03] MEDS ORDERED: NITROGLYCERIN 2% OINT 1 GM *U/D* PKT TOP ONE (05:35)
[2022-11-03] MEDS ORDERED: ACETAMINOPHEN 1000MG 100ML IV BAG IV ONE (07:00)
[2022-11-03] MEDS ORDERED: HOME MED LIST COMPLETE! XX SCH (07:10)
[2022-11-03] MEDS ORDERED: MOM 30ML SUSPENSION UDC PO PRN (07:10)
[2022-11-03] MEDS ORDERED: MIRALAX *UNIT DOSE* 17GM PACKET PO PRN (07:10)
[2022-11-03 07:43] LABS: BASO % 0.4 % (0.0-1.0); EOS # 0.3 10^3/uL (0.0-0.5); EOS % 2.7 % (0.0-3.0); HEMATOCRIT 34.1 % (36.0-47.0); LYMPH # 0.7 10^3/uL (1.5-5.0); LYMPH % 6.3 % (24.0-44.0); MEAN CORPUSCULAR HEMOGLOBIN 32.7 pg (27.0-33.0); MEAN CORPUSCULAR HGB CONC 32.3 g/dl (32.0-36.5); MEAN CORPUSCULAR VOLUME 101.5 fl (80.0-96.0); MONO % 8.8 % (2.0-8.0); NEUTROPHILS % 81.3 % (36.0-66.0); PLATELET COUNT, AUTOMATED 237 10^3/uL (150-450); RED BLOOD COUNT 3.36 10^6/uL (4.00-5.40)
[2022-11-03] MEDS ORDERED: oxyCODONE 5MG TAB PO PRN ×2 (08:35→09:15)
[2022-11-03] MEDS ORDERED: VITAMIN D 50,000 UNITS CAPSULE (ERGOCALCIFEROL 1.25MG) PO SCH (08:35)
[2022-11-03] MEDS ORDERED: ALPRAZolam 0.5 MG TAB PO PRN (08:35)
[2022-11-03] MEDS ORDERED: NITROGLYCERIN 0.4MG SUBL TABLET SL PRN (08:35)
[2022-11-03 08:38] LABS: ALBUMIN 2.9 G/DL (3.2-5.2); BILIRUBIN,TOTAL 0.7 MG/DL (0.3-1.2); CREATININE FOR GFR 1.75 MG/DL (0.55-1.30); GLOMERULAR FILTRATION RATE 29.1 (>32); MAGNESIUM LEVEL 2.1 MG/DL (1.8-2.4); PHOSPHORUS LEVEL 3.1 MG/DL (2.4-5.1); POTASSIUM SERUM 3.9 MMOL/L (3.5-5.1); TOTAL PROTEIN 5.6 G/DL (5.7-8.2)
[2022-11-03] MEDS ORDERED: DOCUSATE SODIUM 100MG CAPSULE PO SCH (09:00)
[2022-11-03] MEDS ORDERED: ENOXAPARIN 40MG/0.4ML SYRINGE (J1650 PER 10MG) SC SCH (09:00)
[2022-11-03] MEDS ORDERED: NALOXONE INJ 0.4MG/1ML VIAL IV STA (09:01)
[2022-11-03 09:12] LABS: PROCALCITONIN 0.72 ng/ml
[2022-11-03 10:01] LABS: INR 1.11; PROTHROMBIN TIME 14.5 SECONDS (12.5-14.5)
[2022-11-03 10:02] LABS: PARTIAL THROMBOPLASTIN TIME 39.3 SECONDS (24.8-34.2)
[2022-11-03] MEDS: SENOKOT S TAB PO SCH ×2 (10:20→21:35)
[2022-11-03] MEDS: APIXABAN 2.5 MG TAB (ELIQUIS) PO SCH ×2 (10:21→21:36)
[2022-11-03] MEDS: SPIRONOLACTONE 25 MG TAB PO SCH (10:21)
[2022-11-03] MEDS: OMEPRAZOLE 20MG CAP PO SCH (10:21)
[2022-11-03] MEDS: FEBUXOSTAT 40 MG TABLET (ULORIC) PO SCH (10:21)
[2022-11-03] MEDS: VENLAFAXINE 37.5 MG TAB PO SCH (10:21)
[2022-11-03] MEDS: FOLIC ACID 1MG TAB PO SCH (10:22)
[2022-11-03] MEDS: ASPIRIN 81MG CHEW TABLET PO SCH (10:22)
[2022-11-03] MEDS: CARVedilol 3.125 MG TAB PO SCH ×2 (10:22→21:36)
[2022-11-03] MEDS: NYSTATIN 100,000 UNITS/GM TOPICAL PWD 15GM TOP SCH ×2 (10:54→21:00)
[2022-11-03] MEDS ORDERED: traMADol 50 MG TAB PO PRN (11:40)
[2022-11-03] MEDS ORDERED: PILL CUTTER 1 EACH XX PRN (11:50)
[2022-11-03] MEDS: FUROSEMIDE 40MG/4ML VIAL IV SCH ×2 (12:24→21:35)
[2022-11-03 18:30] LABS: CALCIUM LEVEL 9.1 MG/DL (8.3-10.6); CREATININE FOR GFR 1.54 MG/DL (0.55-1.30); GLOMERULAR FILTRATION RATE 33.8 (>32)
[2022-11-03] MEDS ORDERED: ACETAMINOPHEN TAB 650MG DOSE (2X325MG) PO ONE (19:35)
[2022-11-03] MEDS ORDERED: SIMETHICONE 80MG CHEW TAB PO ONE (19:35)
[2022-11-03] MEDS ORDERED: ALPRAZolam 0.25 MG TAB PO PRN (21:00)
[2022-11-03] MEDS: ROSUVASTATIN 10 MG TAB (CRESTOR) PO SCH (21:35)
[2022-11-04] VITALS (17 sets, daily range): BP systolic 130–152; BP diastolic 58–67; TEMP 96.8–98.7; O2SAT 90–96
[2022-11-04] MEDS: FUROSEMIDE 40MG/4ML VIAL IV SCH ×3 (05:53→21:03)
[2022-11-04 07:33] LABS: BASO % 0.3 % (0.0-1.0); EOS # 0.2 10^3/uL (0.0-0.5); EOS % 2.1 % (0.0-3.0); HEMOGLOBIN 10.3 g/dl (12.0-15.5); LYMPH # 0.6 10^3/uL (1.5-5.0); LYMPH % 6.7 % (24.0-44.0); MEAN CORPUSCULAR HEMOGLOBIN 32.9 pg (27.0-33.0); MEAN CORPUSCULAR HGB CONC 33.2 g/dl (32.0-36.5); MONO # 0.7 10^3/uL (0.0-0.8); MONO % 8.1 % (2.0-8.0); NEUTROPHILS # 7.1 10^3/uL (1.5-8.5); NEUTROPHILS % 81.9 % (36.0-66.0); PLATELET COUNT, AUTOMATED 236 10^3/uL (150-450); RED BLOOD COUNT 3.13 10^6/uL (4.00-5.40); WHITE BLOOD COUNT 8.7 10^3/uL (4.0-10.0)
[2022-11-04 07:47] LABS: CREATININE FOR GFR 1.35 MG/DL (0.55-1.30); GLOMERULAR FILTRATION RATE 39.3 (>32)
[2022-11-04] MEDS: FEBUXOSTAT 40 MG TABLET (ULORIC) PO SCH (07:51)
[2022-11-04] MEDS: SENOKOT S TAB PO SCH ×2 (07:51→21:02)
[2022-11-04] MEDS: ASPIRIN 81MG CHEW TABLET PO SCH (07:52)
[2022-11-04] MEDS: OMEPRAZOLE 20MG CAP PO SCH (07:52)
[2022-11-04] MEDS: VENLAFAXINE 37.5 MG TAB PO SCH (07:52)
[2022-11-04] MEDS: FOLIC ACID 1MG TAB PO SCH (07:52)
[2022-11-04] MEDS: APIXABAN 2.5 MG TAB (ELIQUIS) PO SCH ×2 (07:53→21:02)
[2022-11-04] MEDS: SPIRONOLACTONE 25 MG TAB PO SCH (07:53)
[2022-11-04] MEDS: NYSTATIN 100,000 UNITS/GM TOPICAL PWD 15GM TOP SCH ×2 (07:53→21:00)
[2022-11-04] MEDS: CARVedilol 3.125 MG TAB PO SCH ×2 (07:53→21:03)
[2022-11-04] MEDS ORDERED: traMADol 50 MG TAB PO PRN (08:00)
[2022-11-04] MEDS ORDERED: ACETAMINOPHEN TAB 650MG DOSE (2X325MG) PO PRN (08:00)
[2022-11-04] MEDS: ROSUVASTATIN 10 MG TAB (CRESTOR) PO SCH (21:02)
[2022-11-05] VITALS (10 sets, daily range): BP systolic 121–138; BP diastolic 41–65; TEMP 97.1–99.1; O2SAT 91–97
[2022-11-05] MEDS: FUROSEMIDE 40MG/4ML VIAL IV SCH (05:17)
[2022-11-05 05:40] LABS: BASO % 0.4 % (0.0-1.0); EOS # 0.2 10^3/uL (0.0-0.5); HEMATOCRIT 31.2 % (36.0-47.0); HEMOGLOBIN 10.1 g/dl (12.0-15.5); LYMPH # 0.7 10^3/uL (1.5-5.0); LYMPH % 10.4 % (24.0-44.0); MEAN CORPUSCULAR HEMOGLOBIN 32.2 pg (27.0-33.0); MEAN CORPUSCULAR HGB CONC 32.4 g/dl (32.0-36.5); MEAN CORPUSCULAR VOLUME 99.4 fl (80.0-96.0); MONO % 14.4 % (2.0-8.0); NEUTROPHILS # 4.8 10^3/uL (1.5-8.5); NEUTROPHILS % 70.9 % (36.0-66.0); PLATELET COUNT, AUTOMATED 248 10^3/uL (150-450); RED BLOOD COUNT 3.14 10^6/uL (4.00-5.40); WHITE BLOOD COUNT 6.7 10^3/uL (4.0-10.0)
[2022-11-05 06:01] LABS: CALCIUM LEVEL 8.7 MG/DL (8.3-10.6); CREATININE FOR GFR 1.4 MG/DL (0.55-1.30); GLOMERULAR FILTRATION RATE 37.7 (>32); MAGNESIUM LEVEL 1.9 MG/DL (1.8-2.4); POTASSIUM SERUM 3.9 MMOL/L (3.5-5.1)
[2022-11-05] MEDS ORDERED: BISACODYL 10MG SUPP PR PRN (07:55)
[2022-11-05] MEDS: FEBUXOSTAT 40 MG TABLET (ULORIC) PO SCH (08:40)
[2022-11-05] MEDS: VENLAFAXINE 37.5 MG TAB PO SCH (08:40)
[2022-11-05] MEDS: SENOKOT S TAB PO SCH (08:40)
[2022-11-05] MEDS: SPIRONOLACTONE 25 MG TAB PO SCH (08:40)
[2022-11-05] MEDS: FOLIC ACID 1MG TAB PO SCH (08:41)
[2022-11-05] MEDS: OMEPRAZOLE 20MG CAP PO SCH (08:41)
[2022-11-05] MEDS: APIXABAN 2.5 MG TAB (ELIQUIS) PO SCH (08:41)
[2022-11-05] MEDS: ASPIRIN 81MG CHEW TABLET PO SCH (08:41)
[2022-11-05] MEDS: NYSTATIN 100,000 UNITS/GM TOPICAL PWD 15GM TOP SCH (08:42)
[2022-11-05] MEDS: CARVedilol 3.125 MG TAB PO SCH (08:44)
[2022-11-05] MEDS ORDERED: SIMETHICONE 80MG CHEW TAB PO PRN (09:50)
[2022-11-05] MEDS ORDERED: ONDANSETRON 4MG 2ML VIAL IV PRN (11:40)
[2022-11-05] MEDS ORDERED: ASPI81CH8 PO (14:54)
[2022-11-05] MEDS ORDERED: FURO80TA2 PO (14:54)
[2022-11-05] MEDS ORDERED: ALPR0.25 PO (14:54)
[2022-11-05] MEDS ORDERED: TRAM50TA2 PO (14:54)
[2022-11-05] MEDS ORDERED: SIME80TA16 PO (14:54)
[2022-11-05] MEDS ORDERED: OMEP-173 PO (14:54)
[2022-11-05] MEDS ORDERED: ELIQ2.5T PO (14:54)
[2022-11-05] MEDS ORDERED: FUROSEMIDE 80 MG TAB PO SCH (17:00)
== END 2022-11-05 19:17 | DRG 291 ==
LOC: M PCU 05:12 → M MSPAV 11-05 10:13
PROVIDERS: ADMIT Internal Medicine; ATTEND Internal Medicine
PROC: B246ZZZ Ultrasonography of Right and Left Heart (ICD-10-PCS; principal; 2022-11-03)
DX: I13.0 Hypertensive heart and chronic kidney disease with heart failure and stage 1 through stage 4 chronic kidney disease, or unspecified chronic kidney disease (principal); J96.01 Acute respiratory failure with hypoxia; I50.33 Acute on chronic diastolic (congestive) heart failure; G92.8 Other toxic encephalopathy; E66.2 Morbid (severe) obesity with alveolar hypoventilation; N18.4 Chronic kidney disease, stage 4 (severe); I24.8 Other forms of acute ischemic heart disease; F03.90 Unspecified dementia, unspecified severity, without behavioral disturbance, psychotic disturbance, mood disturbance, and anxiety; I25.10 Atherosclerotic heart disease of native coronary artery without angina pectoris; E78.5 Hyperlipidemia, unspecified; M10.9 Gout, unspecified; K21.9 Gastro-esophageal reflux disease without esophagitis; I48.91 Unspecified atrial fibrillation; D64.9 Anemia, unspecified; K59.00 Constipation, unspecified; I25.2 Old myocardial infarction; Z90.11 Acquired absence of right breast and nipple; Z90.49 Acquired absence of other specified parts of digestive tract; Z87.891 Personal history of nicotine dependence; S72.012D Unspecified intracapsular fracture of left femur, subsequent encounter for closed fracture with routine healing; Z79.899 Other long term (current) drug therapy; Z88.0 Allergy status to penicillin; Z88.2 Allergy status to sulfonamides; Z88.5 Allergy status to narcotic agent; Z88.8 Allergy status to other drugs, medicaments and biological substances; Z66 Do not resuscitate

== ENCOUNTER → 2022-12-01 | Outpatient (CLI) | payer MEDICARE, BC ==
[~2022-12-01] MED LIST changes: +ALPR0.25 PO; +ASPI81CH8 PO; +FURO80TA2 PO; +HYDR25TA PO; +NORT10CA2 PO; +OMEP-173 PO; +PANT40TA29 PO; +SIME80TA16 PO; +SUCR1TA PO
== END ==
LOC: M SOG 08:26
PROVIDERS: ATTEND Physician Assistant
DX: S72.002A Fracture of unspecified part of neck of left femur, initial encounter for closed fracture (principal); X58.XXXA Exposure to other specified factors, initial encounter; Y92.9 Unspecified place or not applicable; Y93.9 Activity, unspecified; Y99.9 Unspecified external cause status; M85.852 Other specified disorders of bone density and structure, left thigh; Z96.642 Presence of left artificial hip joint

== ENCOUNTER → 2023-01-12 | Outpatient (CLI) | payer MEDICARE | LOC: M SOG 10:33 | PROVIDERS: ATTEND Physician Assistant | DX: S72.002D Fracture of unspecified part of neck of left femur, subsequent encounter for closed fracture with routine healing (principal) ==

== ENCOUNTER → 2023-01-21 | Outpatient (REF) | payer MEDICARE | LOC: M LAB REF 20:30 | PROVIDERS: ATTEND Physician Assistant | DX: R30.0 Dysuria (principal) ==

== ENCOUNTER → 2023-01-25 | Outpatient (REF) | payer MEDICARE | LOC: M LAB REF 10:25 | PROVIDERS: ATTEND Physician Assistant Medical | DX: R30.0 Dysuria (principal) ==

== ENCOUNTER → 2023-03-02 | Outpatient (CLI) | payer MEDICARE, BC | LOC: M RAD 13:01 | PROVIDERS: ATTEND Surgery Vascular Surgery | DX: I65.23 Occlusion and stenosis of bilateral carotid arteries (principal) ==

== ENCOUNTER → 2023-03-23 | Outpatient (CLI) | payer MEDICARE, BC | LOC: M SOG 11:59 | PROVIDERS: ATTEND Orthopaedic Surgery Hand Surgery | DX: M17.12 Unilateral primary osteoarthritis, left knee (principal) ==

== ENCOUNTER → 2023-05-10 | Outpatient (CLI) | payer MEDICARE, BC ==
[2023-05-10 17:09] LABS: APPEARANCE, URINE CLOUDY (CLEAR); BACTERIA, URINE AUTO 2+ (NEGATIVE); BILIRUBIN, URINE AUTO NEGATIVE (NEGATIVE); BLOOD, URINE BLOOD NEGATIVE (NEGATIVE); COLOR, URINE YELLOW (YELLOW); GLUCOSE, URINE (UA) AUTO NEGATIVE (NEGATIVE); KETONE, URINE AUTO NEGATIVE (NEGATIVE); LEUKOCYTE ESTERASE, URINE AUTO 3+ (NEGATIVE); MUCUS, URINE SMALL (NEGATIVE); NITRITE, URINE AUTO NEGATIVE (NEGATIVE); PROTEIN, URINE AUTO 1+ mg/dL (NEGATIVE); RBC, URINE AUTO 6 /HPF (0-3); SPECIFIC GRAVITY URINE AUTO 1.015 (1.002-1.035); SQUAMOUS EPITHELIAL CELL UR AU 18 /HPF (0-6); UROBILINOGEN, URINE AUTO 0.2 mg/dL (0.0-2.0); WBC, URINE AUTO TNTC /HPF (0-3)
[2023-05-10 17:15] LABS: BASO % 0.5 % (0.0-1.0); EOS # 0.4 10^3/uL (0.0-0.5); EOS % 4.4 % (0.0-3.0); HEMOGLOBIN 13.2 g/dl (12.0-15.5); LYMPH # 1.7 10^3/uL (1.5-5.0); LYMPH % 20.9 % (24.0-44.0); MEAN CORPUSCULAR HEMOGLOBIN 31.9 pg (27.0-33.0); MEAN CORPUSCULAR HGB CONC 31.4 g/dl (32.0-36.5); MEAN CORPUSCULAR VOLUME 101.4 fl (80.0-96.0); MONO # 0.7 10^3/uL (0.0-0.8); MONO % 8.3 % (2.0-8.0); NEUTROPHILS # 5.3 10^3/uL (1.5-8.5); NEUTROPHILS % 65.5 % (36.0-66.0); PLATELET COUNT, AUTOMATED 337 10^3/uL (150-450); RED BLOOD COUNT 4.14 10^6/uL (4.00-5.40)
[2023-05-10 17:28] LABS: HEMOGLOBIN A1c 5.7 % (4.0-6.0)
[2023-05-10 19:22] LABS: ALBUMIN 3.9 G/DL (3.2-5.2); BILIRUBIN,TOTAL 0.3 MG/DL (0.3-1.2); CALCIUM LEVEL 9.5 MG/DL (8.3-10.6); CREATININE FOR GFR 1.82 MG/DL (0.55-1.30); GLOMERULAR FILTRATION RATE 27.8 (>32); POTASSIUM SERUM 4.3 MMOL/L (3.5-5.1); TOTAL PROTEIN 6.8 G/DL (5.7-8.2)
== END ==
LOC: M WUC 11:27
PROVIDERS: ATTEND Family Medicine
DX: R53.81 Other malaise (principal); E11.9 Type 2 diabetes mellitus without complications

== ENCOUNTER → 2023-05-26 | Outpatient (REF) | payer MEDICARE, BC ==
[2023-05-26 13:53] LABS: APPEARANCE, URINE CLOUDY (CLEAR); BACTERIA, URINE AUTO 1+ (NEGATIVE); BILIRUBIN, URINE AUTO NEGATIVE (NEGATIVE); BLOOD, URINE BLOOD NEGATIVE (NEGATIVE); COLOR, URINE YELLOW (YELLOW); GLUCOSE, URINE (UA) AUTO NEGATIVE (NEGATIVE); KETONE, URINE AUTO NEGATIVE (NEGATIVE); LEUKOCYTE ESTERASE, URINE AUTO 3+ (NEGATIVE); MUCUS, URINE SMALL (NEGATIVE); NITRITE, URINE AUTO NEGATIVE (NEGATIVE); PROTEIN, URINE AUTO NEGATIVE (NEGATIVE); RBC, URINE AUTO 10 /HPF (0-3); SQUAMOUS EPITHELIAL CELL UR AU 24 /HPF (0-6); UROBILINOGEN, URINE AUTO 0.2 mg/dL (0.0-2.0); WBC, URINE AUTO TNTC /HPF (0-3)
== END ==
LOC: M LABWUC 12:09
PROVIDERS: ATTEND Family Medicine
DX: R53.81 Other malaise (principal)